=== PATIENT | male | born 1955 | race Caucasian/White ===

== ENCOUNTER 2017-08-19 15:39 | Inpatient (IN) | payer OTHER ==
[~2017-08-19] VITALS: Ht 182.9 cm; Wt 132.6 kg
[2017-08-19 15:40] VITALS: O2SAT 97
[2017-08-19 15:41] VITALS: BP 186/98; PULSE 85; RESP 17; TEMP 98.3; O2SAT 97
[2017-08-19] MEDS ORDERED: HEPARIN SODIUM - IV 10,000 UNITS/10 ML VIAL IV PUSH STA (15:46)
[2017-08-19] MEDS ORDERED: SODIUM CHLOR 0.9% 1000 ML INJ 1,000 ML IV ONE (15:46)
[2017-08-19] MEDS ORDERED: HEPARIN-NS/PF FLUSH BAG 1,000 ML IV FLUSH ONE (15:53)
[2017-08-19] MEDS ORDERED: SODIUM CHLORIDE 0.9% FLUSH 10 ML FLUSH IVF PRN (16:00)
--- NOTE | 2017-08-19 16:03 | RADRPT ---
EXAM DATE/TIME: 08/19/2017 15:54 [place] COMPARISON: No previous studies available for comparison. INDICATIONS : Chest pain, STEMI alert. MEDICAL HISTORY : None. SURGICAL HISTORY : None. ENCOUNTER: Initial ACUITY: 1 day PAIN SCORE: 10/10 LOCATION: Bilateral chest FINDINGS: A single view of the chest demonstrates the lungs to be symmetrically aerated without evidence of mas s, infiltrate or effusion. The cardiomediastinal contours are unremarkable. Osseous structures are intact. CONCLUSION: No acute disease. Zackery Oneill Jr., MD on August 19, 2017 at 15:59 Board Certified Radiologist. This report was verified electronically.
[2017-08-19 16:09] LABS: AUTOMATED NEUTROPHIL # 12.7 TH/MM3 (1.8-7.7); BASOPHIL # 0.2 TH/MM3 (0-0.2); BASOPHIL % 1.1 % (0.0-2.0); EOSINOPHIL % 0.3 % (0.0-4.0); HEMATOCRIT 41.7 % (39.0-51.0); HEMOGLOBIN 15.2 GM/DL (13.0-17.0); LYMPH % 14.4 % (9.0-44.0); LYMPHOCYTE # 2.3 TH/MM3 (1.0-4.8); MEAN CELL VOLUME 86.9 FL (80.0-100.0); MEAN CORPUSCULAR HEMOGLOBIN 31.6 PG (27.0-34.0); MEAN PLATELET VOLUME 9.8 FL (7.0-11.0); MONO % 4.1 % (0.0-8.0); MONOCYTE # 0.7 TH/MM3 (0-0.9); NEUT % 80.1 % (16.0-70.0); PLATELET COUNT 211 TH/MM3 (150-450); RED CELL DISTRIBUTION WIDTH 13.5 % (11.6-17.2); WHITE BLOOD COUNT 15.9 TH/MM3 (4.0-11.0)
[2017-08-19] MEDS ORDERED: MIDAZOLAM HCL 2 MG/2 ML VIAL ONE ×2 (16:10→16:32)
--- NOTE | 2017-08-19 16:14 | PD ---
HPI Chief Complaint: Chest Pain Time Seen by Provider: 15:46 Travel History International Travel<30 days: No Contact w/Intl Traveler<30days: No Traveled to known affect area: No History of Present Illness HPI This patient arrives critically ill with acute chest pain having a STEMI. He has anterior sternal pressure and heaviness for 2 hours duration. It is moderately severe. He does not have any history of cardiac disease. No alleviating factors. He had to sling or mitral and 4 baby aspirins. No exacerbating factors. He quit smoking 13 years ago. He is overweight. [facility] Social History Alcohol Use: Yes ([id number]) Tobacco Use: Yes Substance Use: No Allergies-Medications (Allergen,Severity, Reaction): Coded Allergies: No Known Allergies (Unverified , 08/19/17) Review of Systems General / Constitutional: No: Fever Eyes: No: Visual changes HENT: No: Headaches Cardiovascular: Positive: Chest Pain or Discomfort Respiratory: No: Shortness of Breath Gastrointestinal: No: Abdominal Pain Genitourinary: No: Dysuria Musculoskeletal: No: Pain Skin: No Rash Neurologic: No: Weakness Psychiatric: No: Depression Endocrine: No: Polydipsia Hematologic/Lymphatic: No: Easy Bruising Physical Exam Narrative GENERAL: Well-nourished, well-developed patient with chest pain . SKIN: Focused skin assessment reveals no rash and nodules. Skin is Warm and dry. HEAD: Atraumatic. Normocephalic. EYES: Pupils equal and round. No scleral icterus. No injection or drainage. ENT: No nasal bleeding or discharge. Mucous membranes pink and moist. NECK: Trachea midline. No JVD. CARDIOVASCULAR: Regular rate and rhythm. No murmur appreciated. RESPIRATORY: No accessory muscle use. Clear to auscultation. Breath sounds equal bilaterally. GASTROINTESTINAL: Abdomen soft, non-tender, nondistended. Hepatic and splenic margins not palpable. MUSCULOSKELETAL: No obvious deformities. No clubbing. No cyanosis. No edema. NEUROLOGICAL: Awake and alert. No obvious cranial nerve deficits. Motor grossly within normal limits. Normal speech. PSYCHIATRIC: Appropriate mood and affect; insight and judgment normal. Data Data Last Documented VS Vital Signs Date Time Temp Pulse Resp B/P (MAP) Pulse Ox O2 Delivery O2 Flow Rate FiO2 08/19/17 15:46 98 Room Air 08/19/17 15:41 98.3 85 17 186/98 (127) Orders Orders Troponin I (08/19/17 15:46) Ckmb (Isoenzyme) Profile (08/19/17 15:46) Complete Blood Count With Diff (08/19/17 15:46) I-Stat Profile (08/19/17 15:46) I-Stat Creatinine (08/19/17 15:46) Calcium (08/19/17 15:46) Magnesium (Mg) (08/19/17 15:46) Prothrombin Time / Inr (Pt) (08/19/17 15:46) Act Partial Throm Time (Ptt) (08/19/17 15:46) B-Type Natriuretic Peptide (08/19/17 15:46) Chest, Single Ap (08/19/17 15:46) Electrocardiogram (08/19/17 15:46) Oxygen Administration (08/19/17 15:46) Iv Access Insert/Monitor (08/19/17 15:46) Oximetry (08/19/17 15:46) Sodium Chlor 0.9% 1000 Ml Inj (Ns 1000 M (08/19/17 15:46) Sodium Chloride 0.9% Flush (Ns Flush) (08/19/17 16:00) Heparin Inj (Heparin Inj) (08/19/17 15:46) Cardiac Catheterization (08/19/17 ) Admit Order (Ed Use Only) (08/19/17 15:53) Heparin-Ns/Pf Flush Bag (Heparin-Ns/Pf F (08/19/17 15:53) Labs Laboratory Tests Test 08/19/17 15:50 MDM Medical Decision Making Medical Screen Exam Complete: Yes Emergency Medical Condition: Yes Medical Record Reviewed: Yes Differential Diagnosis STEMI, ACS, cardiac arrhythmia Narrative Course I have reviewed the patient's electronic medical record. This patient arrives as a acute inferior wall STEMI I reviewed his EKG which shows ST elevation in leads II, III, and F aVF with reciprocal depression in anterior leads Blood pressure 180s systolic IV placed and STEMI workup ordered I stats look normal I reviewed the case with acoustical carpenter Dr. Calvert I gave him 7000 units IV heparin bolus He is going to be sent emergently to the catheterization lab Critical Care Narrative Aggregate critical care time was 33 minutes. Time to perform other separately billable procedures was not included in the critical care time. My time did not include minutes spent treating any other patients simultaneously or on activities that did not directly contribute to the patient's treatment. The services I provided to this patient were to treat and/or prevent clinically significant deterioration that could result in: Myocardial injury, cardiopulmonary arrest, cardiac arrhythmia I provided critical care services requiring my management, as noted below: Chart data review, documentation time, medication orders and management, vital sign assessments/reviewing monitor data, ordering and reviewing lab tests, ordering and interpreting/reviewing x-rays and diagnostic studies, care of the patient and discussion of the patient with the admitting physicians. Diagnosis Primary Impression: ST elevation myocardial infarction (STEMI) of inferior wall, initial episode of care Admitting Information Admitting Physician Requests: Froylan Ragland MD Aug 19, 2017 16:14
[2017-08-19] MEDS ORDERED: MIDAZOLAM HCL 2 MG/2 ML VIAL IV ONE ×2 (16:19→16:33)
[2017-08-19] MEDS ORDERED: HEPARIN SODIUM - IV 10,000 UNITS/10 ML VIAL ONE (16:29)
[2017-08-19] MEDS ORDERED: HEPARIN SODIUM - IV 10,000 UNITS/10 ML VIAL IV ONE (16:30)
[2017-08-19 16:31] LABS: PROTHROMBIN TIME - PATIENT 9.9 SEC (9.8-11.6)
[2017-08-19 16:36] LABS: CALCIUM 8.8 MG/DL (8.5-10.1); TROPONIN I 0.19 NG/ML (0.02-0.05)
[2017-08-19 16:37] LABS: MAGNESIUM 2.3 MG/DL (1.5-2.5)
[2017-08-19 16:46] LABS: MEAN CORPUSCULAR HGB CONC 36.4 % (32.0-36.0)
[2017-08-19] MEDS ORDERED: TIROFIBAN INFUSION INJ 250 ML IV ONE (16:46)
[2017-08-19 16:47] LABS: TOXIC GRANULATION 2+ (NORMAL)
[2017-08-19 16:48] LABS: SPHEROCYTES OCC (NORMAL); TOXIC VACUOLATION PRESENT (NONE SEEN)
[2017-08-19] MEDS ORDERED: TIROFIBAN IV ONE (16:51)
[2017-08-19] MEDS ORDERED: TIROFIBAN INFUSION INJ 250 ML IV SCH (16:53)
[2017-08-19] MEDS ORDERED: TICAGRELOR 90 MG TAB PO ONE ×2 (16:59→17:02)
[2017-08-19] MEDS ORDERED: SODIUM CHLOR 0.9% 1000 ML INJ 1,000 ML IV SCH (17:12)
[2017-08-19] MEDS ORDERED: TEMAZEPAM 15 MG CAP PO PRN (17:15)
[2017-08-19] MEDS ORDERED: MISC INFORMATION XX ONE (17:15)
--- NOTE | 2017-08-19 17:26 | CATHPROC ---
[employer] HIS Report Study Information Study Number Admission Scheduled Start Study Start [id number] Aug 19 2017 3:39PM 08/19/2017 Aug 19 2017 3:54PM [place] Service Cardiac Catheterization Admit Source Facility Department Emergency department [facility] - Call Center Receptionist Physician and Clinical Staff Initial Cornell Eubanks Historic Interpreter Shad Valencia,VIVIEN Recorder Vijaya Nunez ,RT(R) Scrub Loree Perea,RT(R) Procedures Performed Procedure Location (Site) Vessel Name Angiogram LV LV Ventricle Coronary Angiograms LCA Left Coronary Coronary Angiograms RCA Right Coronary Drug Eluting Inflatio Circ Mid Seg 1 Circ Mid L Heart Cath PTCA Circ Mid Seg 1 Circ Mid Wire insertion Fem Art (right) Femoral Art Equipment Time Line Camera Operator Description Size Mfg Part Number Used/Scraped [id number] 16:24 [employer] WIRE, ASAHI PROWATER 180CM 180CM Used *[id number] WIRE, BALANCE MIDDLEWEIGHT [id number] 16:24 [employer] 190CM Used 190CM *[id number] TRANSDUCER, TRUWAVE [id number] 15:59 SANCHEZ JOHN * Used W/STOCKCOCK *[id number] *[id number] *[id number] PIGTAIL ANG. 145 INFINITI 534-652S CATHETER *[id number] *[id number] 15:59 [employer] PACK, CCL CUSTOM * Used *[id number] 15:59 [employer] PACER PEN, SKIN DUAL W/ RULER * Used *[id number] 16:45 [employer] BALLOON, 3.0 X 15MM EUPHORA 15MM Used *[id number] 16:23 [employer] CATHETER, EXPORT ASPIRATON Used *[id number] 16:51 [employer] STENT, 3.5 18MM ZAY 3.5 18MM Used *[id number] 16:47 [employer] MEDICAL 30 KERWIN INDEFLATOR Used *[id number] 15:59 [employer] MEDICAL SHEATH, FR6.5 PRELUDE 11CM FR 6.5 038ACT Used *[id number] 15:59 [employer] MEDICAL WIRE, 3MMJ .035 180CM 180CM Used *[id number] 15:59 NAMIC MANIFOLD, 4 PORT * Used *[id number] 15:59 [employer] OMNIPAQUE, 350 MG, 150ML 150ML [id number] Used [id number] 15:59 [employer] MEDICAL BLANKET,WARM AIR CCL * Used *[id number] Equipment Model, Serial, Lot Number and Expiration Data Description Model Number Serial Number Lot Number Expiration Date STENT, 3.5 18MM ZAY [id number] 04-16-2019 History: Current Medications Medication Dosage/Unit Route Frequency Last Date/Time Taken ASA HEPARIN History: Allergies Allergy Reaction No Known Allergies History: Risk Factors Family History of Hypertension Dyslipidemia Previous IA Previous Heart Failure Premature CAD No No No No No Prior Valve Prior PCI Prior CABG Surgery No No No Cerebrovascular Peripheral Artery Chronic Lung On Dialysis Diabetes Disease Disease Disease No No No No No History: Symptoms/Diagnosis Selection Items Chest pain History: Stress Tests Stress or Imaging Studies Performed No History: Other Current Smoker No Labs Hgb (g/dl) Hct (%) WBC (l/cumm) Platelets (thousands) 11.60-17.00 35.00-51.00 4.00-11.00 150.00-450.00 15.0 44 15.9 211 Glucose (mg/dl) BUN (mg/dl) Creatinine (mg/dl) BUN:Creatinine (1:x) 74.00-106.00 7.00-18.00 0.50-1.30 10.00-20.00 210 12 0.8 15 Na (meq/l) K (meq/l) 136.00-145.00 3.50-5.10 137 4.7 Troponin I (ng/ml) CPK-MB (ng/ML) 0.02-0.05 0.50-3.60 0.19 Not Drawn Medication Medication Total Dose (Bolus/Oral) Medication Total Dosage/Unit 1% XYLOCAINE 20 mL AGGRASTAT BOLUS 62 mL BRILINTA 180 mg FENTANYL 50 mcg HEPARIN 2500 units NTG (IC) 150 mcg VERSED 4 mg Medications (Bolus/Oral) Medication Time Given Dosage/Unit Administered By Reason 1% XYLOCAINE 08/19/2017 4:17:53 PM 20 mL Cornell Calvert 20 mL 1% XYLOCAINE given in lab by Cornell Calvert in Right Groin via Subcutaneous. Ordered by Mario Alberto Calvert enn. VERSED 08/19/2017 4:19:58 PM 2 mg Shad Valencia 2 mg VERSED given in lab by Shad Valencia RN in Left Antecubital via Peripheral IV. Ordered by Cornell Ford. HEPARIN 08/19/2017 4:30:00 PM 2500 units Shad Valencia 2500 units HEPARIN given in lab by Shad Valencia RN in Left Antecubital via Peripheral IV. Ordered by Cornell Calvert. VERSED 08/19/2017 4:33:20 PM 2 mg Shad Valencia 2 mg VERSED given in lab by Shad Valencia RN in Left Antecubital via Peripheral IV. Ordered by Cornell Ford. NTG (IC) 08/19/2017 4:49:21 PM 50 mcg Cornell Calvert 50 mcg NTG (IC) given in lab by Cornell Calvert via Intra-coronary. Ordered by Cornell Calvert. NTG (IC) 08/19/2017 4:50:01 PM 100 mcg Cornell Calvert 100 mcg NTG (IC) given in lab by Cornell Calvert via Intra-coronary. Ordered by Cornell Calvert. AGGRASTAT BOLUS 08/19/2017 4:51:40 PM 62 mL Shad Valencia 62 mL AGGRASTAT BOLUS given in lab by Shad Valencia RN via Peripheral IV. Ordered by Cornell Calvert. FENTANYL 08/19/2017 5:01:09 PM 50 mcg Shad Valencia 50 mcg FENTANYL given in lab by Shad Valencia RN via Peripheral IV. Ordered by Cornell Calvert. BRILINTA 08/19/2017 5:02:25 PM 180 mg Shad Valencia 180 mg BRILINTA given in lab by Shad Valencia RN via Oral. Ordered by Cornell Calvert. Medication (Drip) Medication Time Given Dosage/Unit Concentration/Unit Diluent (ml) Solution AGGRASTAT DRIP 08/19/2017 4:53:53 PM 0.148 mcg/kg/min 12.5 mg 250 NaCl .9 0.148 mcg/kg/min AGGRASTAT DRIP given in lab by Shad Valencia RN via Peripheral IV. Pump/Drip Flow = 22.5 ml/hr using NaCl .9 with a concentration of 12.5 mg in 250 ml. Ordered by Cornell Calvert. IV Solutions 08/19/2017 4:00:57 PM 50 mL (IV) NaCl .9 IV Solutions given in lab by Cornell Calvert in Left Antecubital via Peripheral IV. Pump/Drip Flow using NaCl .9. Ordered by Cornell Calvert. Initial Case Assessment Cardiovascular HR Rhythm NIBP Chest Pain 96 stemi 166/102 7 Edema Present Skin color Skin None Normal Warm Dry Circulatory - Right Pulses Dorsalis Pedis Femoral 2 2 Scale (0,1,2,3,4,d) Circulatory - Left Pulses Dorsalis Pedis Femoral 2 2 Scale (0,1,2,3,4,d) Neurological State Oriented to time-place- Alert Moves all extremities person Respiration - General Respiration Rate SpO2 (%) O2 (lpm) (B/min) 11 96 2 Final Case Assessment Cardiovascular HR NIBP 92 129/84 Edema Present Skin color Skin None Normal Warm Dry Neurological State Oriented to time-place- Alert Moves all extremities person Respiration - General Respiration Rate SpO2 (%) (B/min) 16 93 Chronological Log Time Study Chronological Log 16:00:33 Patient arrived via Bed. 16:00:34 Patient Name, D.O.B, / Armband Verified By R.N. 16:00:35 Consent signed by the physician and the patient and verified by the Call Center Receptionist staff. 16:00:36 Verbal Stimulation=2 Physical Stimulation=2 Airway=2 Respiration=2 TOTAL=8. (0=absent, 1=li mited, 2=present) 16:00:47 Patient has been NPO for Less than 6Hrs. 16:00:49 Skin Breakdown- none per patient 16:00:52 Patient Warmer Placed on the Table. 16:00:54 Disposable Defibrillator Pads Placed On Patient. 16:00:56 Emir Prominences Protected 16:00:57 A # 20 IV was noted in the Hand (right). Grade = 0 16:00:57 A # 20 IV was noted in the Antecubital (left). Grade = 0 IV Solutions given in lab by Cornell Calvert in Left Antecubital via Peripheral IV. Pump/Drip Flow using NaCl .9. Ordered 16:00:57 by Cornell Calvert. 16:00:59 History and physical on the chart or being dictated. Assessment: Initial Case, HR=96 BPM, Rhythm=stemi, FIGM=576/102 mmhg, Chest Pain=7, Edema=None, Color=Normal, Skin = Warm, Dry Right Pulses: Demetri Ped=2, Femoral=2 16:01:02 Left Pulses: Demetri Ped=2, Femoral=2 Neurological: State=Alert, Ox3, CARVALHO Respiration: Resp=11 B/min, SpO2=96 %, O2=2 lpm Vitals capture started with the following parameters, Patient=Adult, Interval=5 min, Initial Pr sdkbfr=107 mmHg, 16:04:56 Deflation Rate=5 mmHg, Cuff placed on Left Arm 16:05:55 HR=90 bpm, GPBR=674/102 mmhg, SpO2=96.0 %, Resp=12 B/min, Pain=7, Irina=6, Moon=2 16:06:06 Reference ECG taken 16:08:45 MD paged 16:09:26 Pressure channel 1 zero failed. 16:09:38 MD responded 16:09:47 Pressure channel 1 zero failed. 16:10:05 Pressure channel 1 zero failed. 16:10:12 Pressure channel 1 zeroed. 16:10:35 HR=88 bpm, FAZV=260/110 mmhg, SpO2=99.0 %, Resp=16 B/min, Pain=7, Irina=6, Moon=2 16:14:45 MD arrived. 16:15:28 HR=89 bpm, NIBP=75/61 mmhg, SpO2=99.0 %, Resp=14 B/min, Pain=7, Irina=6, Moon=2 16:16:15 NIBP STAT measurement started. 16:16:21 Vitals capture stopped. Vitals capture started with the following parameters, Patient=Adult, Interval=5 min, Initial Pr kjyfsf=818 mmHg, 16:16:39 Deflation Rate=5 mmHg, Cuff placed on Right Arm Time Out. Correct patient, correct procedure, correct physician, power injector not loaded with contrast with surgical 16:17:43 team present. Time Out Concurred by MD and individual staff in procedure. 16:17:52 Case Start 16:17:53 20 mL 1% XYLOCAINE given in lab by Cornell Calvert in Right Groin via Subcutaneous. Ordered by Cornell Calvert. 16:18:47 NU=517 bpm, YDBN=852/69 mmhg, SpO2=99.0 %, Resp=19 B/min, Pain=7, Irina=6, Moon=2 16:19:58 2 mg VERSED given in lab by Shad Valencia, RN in Left Antecubital via Peripheral IV. Order ed by Cornell Calvert. 16:20:08 Access site was Right Femoral Artery. 16:20:15 A SHEATH, FR6.5 PRELUDE 11CM FR 6.5 was advanced into the Fem Art (right) using the Percuta neous technique. A JL 4.0 INFINITI CATHETER FR 6 was advanced over a wire. OMNIPAQUE, 350 MG, 150ML 150ML was us ed for 16:20:38 injections. Recorded Pressure: Ao, HR=96, Condition=Condition 1 16:21:33 (Aorta) Ao 148/90/117 16:21:45 The LCA was injected and visualized at various angles. OMNIPAQUE, 350 MG, 150ML 150ML used . 16:22:20 HR=77 bpm, EZIJ=473/99 mmhg, SpO2=96.0 %, Resp=16 B/min, Pain=7, Irina=6, Moon=2 16:22:57 Catheter was removed A 3DRC INFINITI CATHETER FR 6 was advanced over a wire. OMNIPAQUE, 350 MG, 150ML 150ML was used for 16:22:59 injections. 16:24:32 The RCA was injected and visualized at various angles. OMNIPAQUE, 350 MG, 150ML 150ML used . 16:24:40 Catheter was removed 16:25:08 Activated Clotting Time Drawn A XBLAD 3.5 GUIDE CATHETER FR 6 was advanced over a wire. OMNIPAQUE, 350 MG, 150ML 150ML was us ed for 16:25:35 injections. 16:27:52 HR=90 bpm, JXWO=438/108 mmhg, SpO2=97.0 %, Resp=16 B/min, Pain=7, Irina=6, Moon=2 16:28:19 A WIRE, [facility] PROWATER 180CM 180CM was inserted via Fem Art (right). 16:29:00 Interventional wire has crossed the lesion 16:29:14 ACT (Normal Range 90-180) = 200 16:30:00 2500 units HEPARIN given in lab by Shad Valencia, RN in Left Antecubital via Peripheral IV . Ordered by Cornell Calvert. 16:31:46 A WIRE, BALANCE MIDDLEWEIGHT 190CM 190CM was inserted via Fem Art (right). 16:32:26 HR=91 bpm, QCOF=475/96 mmhg, SpO2=97.0 %, Resp=15 B/min, Pain=7, Irina=6, Moon=2 16:32:55 Aspiration catheter inserted 16:33:20 2 mg VERSED given in lab by Shad Valencia, RN in Left Antecubital via Peripheral IV. Order ed by Cornell Calvert. 16:35:22 BMW Wire removed 16:36:45 Aspiration in progress 16:37:04 Catheter was removed 16:37:23 HR=80 bpm, MZGJ=920/59 mmhg, SpO2=92 %, Resp=22 B/min, Pain=7, Irina=6, Moon=2 16:38:08 A WIRE, BALANCE MIDDLEWEIGHT 190CM 190CM was inserted via Fem Art (right). 16:39:12 Aspiration catheter inserted 16:40:31 Aspiration in progress 16:41:19 Catheter was removed 16:41:53 A WIRE, BALANCE MIDDLEWEIGHT 190CM 190CM was inserted via Fem Art (right). 16:43:46 HR=91 bpm, JGNI=871/82 mmhg, SpO2=96.0 %, Resp=15 B/min, Pain=7, Irina=6, Moon=2 A BALLOON, 3.0 X 15MM EUPHORA 15MM was inserted over WIRE, ASAHI PROWATER 180CM 180CM via the F em Art 16:45:29 (right). A BALLOON, 3.0 X 15MM EUPHORA 15MM over a WIRE, ASAHI PROWATER 180CM 180CM in the Circ Mid Seg 1 was 16:46:35 inflated using a 30 KERWIN INDEFLATOR at 8 kerwin for 35 sec. 16:47:23 HR=97 bpm, KSUB=060/53 mmhg, SpO2=72.0 %, Resp=18 B/min, Pain=7, Irina=6, Moon=2 A BALLOON, 3.0 X 15MM EUPHORA 15MM over a WIRE, ASAHI PROWATER 180CM 180CM in the Circ Mid Seg 1 was 16:47:39 inflated using a 30 KERWIN INDEFLATOR at 8 kerwin for 20 sec. 16:48:41 Balloon Removed. 16:49:21 50 mcg NTG (IC) given in lab by Cornell Calvert via Intra-coronary. Ordered by Cornell Calvert. 16:49:37 Activated Clotting Time Drawn 16:50:01 100 mcg NTG (IC) given in lab by Cornell Calvert via Intra-coronary. Ordered by Cornell Calvert. 16:51:25 BMW Wire removed 16:51:40 62 mL AGGRASTAT BOLUS given in lab by Shad Valencia, RN via Peripheral IV. Ordered by Cornell Ford. A STENT, 3.5 18MM ZAY 3.5 18MM was advanced through a XBLAD 3.5 GUIDE CATHETER FR 6 over a WIR E, ASAHI 16:52:20 PROWATER 180CM 180CM. 16:52:39 HR=86 bpm, TXDW=686/77 mmhg, SpO2=78.0 %, Resp=23 B/min, Pain=7, Irina=6, Moon=2 A STENT, 3.5 18MM ZAY 3.5 18MM was deployed using a 30 KERWIN INDEFLATOR at 13 atmospheres for 30 seconds in 16:53:19 the Circ Mid Seg 1. 0.148 mcg/kg/min AGGRASTAT DRIP given in lab by Shad Valencia, RN via Peripheral IV. Pump/Drip Flow = 22.5 ml/hr 16:53:53 using NaCl .9 with a concentration of 12.5 mg in 250 ml. Ordered by Cornell Calvert. 16:55:21 Delivery device removed 16:55:35 Wire removed 16:55:37 Catheter was removed A PIGTAIL ANG. 145 INFINITI CATHETER FR 6 was advanced over a wire. OMNIPAQUE, 350 MG, 150ML 15 0ML was 16:55:38 used for injections. Recorded Pressure: LV, HR=96, Condition=Condition 1 16:57:12 (Left Ventricle) LV 113/13/27 16:57:36 HR=77 bpm, UEIN=605/86 mmhg, SpO2=89.0 %, Resp=19 B/min, Pain=7, Irina=6, Moon=2 16:58:34 The LV was injected at 12 cc/sec for a total of 41. OMNIPAQUE, 350 MG, 150ML 150ML used. Recorded Pressure: LV, Ao, HR=99, Condition=Condition 1 16:59:12 (Left Ventricle) LV 88/10/20, (Aorta) Ao 120/65/88 16:59:41 Catheter was removed 16:59:57 Case End 17:00:16 ACT (Normal Range 90-180) = 329 Assessment: Final Case, HR=92 BPM, BEZZ=253/84 mmhg, Edema=None, Color=Normal, Skin = Warm, Dry 17:00:28 Neurological: State=Alert, Ox3, CARVALHO Respiration: Resp=16 B/min, SpO2=93 % 17:00:29 Catheter(s) removed without difficulty 17:01:04 In the Fem Art (right) the sheath was sutured in place by Cornell Calvert. 17:01:09 50 mcg FENTANYL given in lab by Shad Valencia, VIVIEN via Peripheral IV. Ordered by Toña Calvert. 17:02:02 No case complications noted. 17:02:09 Bedside Report will be given. 17:02:13 Contrast Scanned 17:02:16 HR=82 bpm, XGXP=506/84 mmhg, SpO2=90.0 %, Resp=21 B/min, Pain=7, Irina=6, Moon=2 17:02:19 A Left Heart Cath was performed. 17:02:25 180 mg BRILINTA given in lab by Shad Valencia, RN via Oral. Ordered by Cornell Calvert. 17:07:08 Vitals capture stopped. 17:15:11 Patient moved to [facility] End Study - Contrast Media Used In Study Contrast Total Opened (mL) Total Used (mL) Total Wasted (mL) Omnipaque 160 160 0 End Study - Maximum Contrast Load Max Contrast Load (mL) 793.8 End Study - Radiation Exposure Fluoro Time (minutes) 10.0 End Study - Patient Disposition Complications Transferred To Interventional Outcome No Telemetry Bed successful
[2017-08-19 17:29] VITALS: BP 125/64; PULSE 88; RESP 20; TEMP 98; O2SAT 92
[2017-08-19] MEDS ORDERED: ATROPINE SULFATE 1 MG/10 ML SYRINGE ONE ×2 (18:26→20:17)
--- NOTE | 2017-08-19 18:41 | MA ---
cc: GWENDOLYN LINKN DATE: 08/19/2017 PROCEDURE Emergency left heart catheterization, selective coronary angiography, left ventriculography, thrombectomy/angioplasty/stent of a totally occluded thrombosed left circumflex. PROCEDURE NOTE The patient was brought to the cardiac catheterization laboratory under emergency conditions in the midst of an acute inferior ST-elevation myocardial infarction. The right groin was prepped and draped as per policy and anesthetized with 1% lidocaine. Arterial access was obtained via the right femoral artery and a 6-Tanzanian sheath placed. Coronary arteriography was performed using 6-Tanzanian Maryann left 4.0 and right progressive catheters. Left ventriculography was done using a standard 6-Tanzanian pigtail. Percutaneous coronary intervention was done as described below. There were no apparent immediate complications. HEMODYNAMIC RESULTS Left ventricle: 120 with an end-diastolic pressure of 20. Aorta 120/65 with a mean of 88. There was no significant transvalvular aortic gradient on pullback of the pigtail catheter. CORONARY ARTERIOGRAPHY The left main is a short vessel which is free of disease. The left anterior descending gives rise to a fairly large diagonal. There are minimal luminal irregularities in the proximal LAD and proximal diagonal. The left circumflex is a large dominant vessel which is totally occluded in its midportion. There is sluggish minimal flow into an obtuse marginal and into the distal left circumflex. The right coronary artery is a small nondominant vessel with minimal disease in its midportion. LEFT VENTRICULOGRAPHY Contrast injection of the left ventricle reveals no definite segmental wall motion abnormalities. Ejection fraction is estimated at 60%. PERCUTANEOUS CORONARY INTERVENTION DESCRIPTION: Adequate heparin was given during the procedure to achieve an ACT greater than 300 seconds. Aggrastat was given as per protocol. Using a 6-Tanzanian XB 3.5 guiding catheter, the ostium of the left main was re-engaged. Using a 0.014 Prowater guidewire the total occlusion in the mid left circumflex was crossed without difficulty and the tip of the wire positioned distally. A second wire, a balanced middle weight guidewire was advanced into the obtuse marginal without difficulty. Simply advancing the wires reestablished JANIS grade 2 flow in the vessel. Two passes were made over the Prowater guidewire using an [place] thrombectomy catheter. We had to remove the balance middle weight guidewire temporarily as it was difficult to advance the [place] catheter. Angiography at this point shows improvement in flow to JANIS grade 3. There is now residual ulcerated 90% residual stenosis. Further predilation was done using a 3.0 mm Euphora balloon catheter. Stenting was then done using a 3.5 x 18 mm Resolute Adan stent which was deployed at 13 atmospheres for 30 seconds. Final angiography shows overall good results with reduction of the initial total occlusion to roughly 0% residual with no definite evidence for dissection or distal embolization. The patient tolerated the procedure well. There were no apparent immediate complications. CONCLUSION 1. Severe single-vessel coronary artery disease. 2. Left dominant system. 3. Acute ST-elevation myocardial infarction due to a totally occluded mid left circumflex now status post thrombectomy, angioplasty, stent of this region. 4. Normal left ventricular function with estimated ejection fraction of 60%. MD PATTY Haskins/GOOD /5:04 PM /6:03 PM KAMARI
--- NOTE | 2017-08-19 18:41 | MB ---
cc: EDDA LINK DATE OF CONSULTATION 08/19/17 REASON FOR CON[address]ULTATION Acute ST-elevation myocardial infarction. HISTORY OF PRESENT ILLNESS The patient is a 62-year-old white male with a history of hyperlipidemia who was in his usual state of health up until two hours prior to admission when he began to experience fairly severe substernal chest pressure without associated shortness of breath, nausea or diaphoresis. He came to the emergency room where EKG showed evidence for acute inferior ST-elevation myocardial infarction, so he was called as a STEMI alert. At this time, he continues to have severe substernal chest discomfort. He denies pleurisy, dizziness, syncope, near-syncope, palpitations, pedal edema, paroxysmal nocturnal dyspnea. PAST MEDICAL HISTORY As above. MEDICATIONS Cardiac medications at home: none. ALLERGIES NO KNOWN DRUG ALLERGIES. FAMILY HISTORY There is no significant family history of early myocardial infarction. SOCIAL HISTORY The patient is a former smoker. There is no history of alcohol abuse. REVIEW OF SYSTEMS As in the history of present illness, otherwise, negative or noncontributory. He also denies headache, abdominal pain, dyspepsia, bright red blood per rectum or recent flu symptoms. PHYSICAL EXAMINATION VITAL SIGNS: Blood pressure 186/98 with a pulse of 85, respirations 17. GENERAL: He is a well-developed, well-nourished white male in no acute distress HEENT: Jugular venous pressure is normal. Carotid pulses are 2+ bilaterally and without bruits. LUNGS: Examination of the chest reveals clear lung esparza anteriorly. HEART: On cardiac examination, he has a regular rhythm and rate without definite S3, S4 or murmur. ABDOMEN: He has a soft, obese, nontender abdomen. Bowel sounds are present. There is no definite hepatosplenomegaly. EXTREMITIES: No clubbing, cyanosis or edema. Peripheral pulses are normal throughout. IMAGING STUDIES Chest x-ray shows no acute disease. CARDIOLOGY STUDIES EKG shows sinus rhythm, right bundle-branch block, inferior ST elevation with reciprocal changes consistent with acute injury pattern. LABORATORY DATA WBC 15.9, hemoglobin 15.2, platelets 211, potassium 4.7, BUN 12, creatinine 0.8, CK 223, troponin 0.19, INR 1.0. IMPRESSION Acute inferior ST-elevation myocardial infarction in this 62-year-old white male with a history of hyperlipidemia and tobacco abuse. At this time, he continues to have marked ST elevation on the monitor as well as severe chest pain. Therefore, he has been recommended emergency cardiac catheterization with probable percutaneous coronary intervention, the risks of which have been explained to him including but not limited to , myocardial infarction, stroke, arrhythmia, bleeding, infection, renal failure. He agrees to proceed. RECOMMENDATIONS 1. Emergency cardiac catheterization. 2. Eventually start beta abner and ROSLYN inhibitor therapy. 3. Check a fasting lipid profile and initiate statin therapy MD PATTY Haskins/ /5:14 PM /6:11 PM MTDMeme
[2017-08-19] MEDS ORDERED: LORazepam 2 MG/ML VIAL IV ONE (20:30)
[2017-08-19] MEDS ORDERED: ATROPINE SULFATE 1 MG/10 ML SYRINGE IV ONE (20:30)
[2017-08-19] MEDS ORDERED: CARVEDILOL 3.125 MG TAB PO SCH (21:00)
[2017-08-19] MEDS ORDERED: ENALAPRIL MALEATE 5 MG TAB PO SCH (21:00)
[2017-08-19 21:30] VITALS: BP 161/88; PULSE 83; PULSE 89; RESP 16; TEMP 98.7; O2SAT 95
[2017-08-19] MEDS ORDERED: cloNIDine HCL 0.1 MG TAB PO PRN (22:30)
--- NOTE | 2017-08-19 22:49 | PD.CONS ---
HPI Service Critical Care Medicine Consult Requested By Primary Care Physician Unknown History of Present Illness 62-year-old gentleman admitted with acute chest pain having a STEMI. He has had anterior sternal pressure and heaviness for 2 hours duration. He was taken emergently to cardiac catheterization lab where the total occlusion in the mid left circumflex was treated with angioplasty and kathi stent placement. Patient was admitted to CVICU postprocedure where he developed periods of bradycardia 30s with altered mental status and agonal respiration. The critical care medicine was consulted by cardiology for assistance of management of bradycardia. Review of Systems Constitutional: COMPLAINS OF: Diaphoretic episodes, DENIES: Fatigue, Fever, Weight gain, Weight loss, Chills, Dizziness, Change in appetite, Night Sweats Endocrine: DENIES: Heat/cold intolerance, Polydipsia, Polyuria, Polyphagia Eyes: DENIES: Blurred vision, Diplopia, Eye inflammation, Eye pain, Vision loss , Photosensitivity, Double Vision Ears, nose, mouth, throat: DENIES: Tinnitus, Hearing loss, Vertigo, Nasal discharge, Oral lesions, Throat pain, Hoarseness, Ear Pain, Running Nose, Epistaxis, Sinus Pain, Toothache, Odynophagia Respiratory: COMPLAINS OF: Apneas, Shortness of breath, DENIES: Cough, Snoring , Wheezing, Hemoptysis, Sputum production Cardiovascular: COMPLAINS OF: Chest pain, Dyspnea on Exertion, DENIES: Palpitations, Syncope, PND, Lower Extremity Edema, Orthopnea, Claudication Gastrointestinal: COMPLAINS OF: Nausea, DENIES: Abdominal pain, Black stools, Bloody stools, Constipation, Diarrhea, Vomiting, Difficulty Swallowing, Anorexia Genitourinary: DENIES: Sexual dysfunction, Urinary frequency, Urinary incontinence, Urgency, Hematuria, Dysuria, Nocturia, Penile Discharge, Testicular Pain, Testicular Swelling Musculoskeletal: DENIES: Joint pain, Muscle aches, Stiffness, Joint Swelling, Back pain, Neck pain Integumentary: DENIES: Abnormal pigmentation, Nail changes, Pruritus, Rash Hematologic/lymphatic: DENIES: Bruising, Lymphadenopathy Immunologic/allergic: DENIES: Eczema, Urticaria Neurologic: DENIES: Abnormal gait, Headache, Localized weakness, Paresthesias, Seizures, Speech Problems, Tremor, Poor Balance Psychiatric: DENIES: Anxiety, Confusion, Mood changes, Depression, Hallucinations, Agitation, Suicidal Ideation, Homicidal Ideation, Delusions Past Family Social History Allergies: Coded Allergies: No Known Allergies (Unverified , 08/19/17) Past Medical History Obesity Dyslipidemia Past Surgical History No significant surgical history Reported Medications No prescription medication Active Ordered Medications Current Medications Medications (Trade) Dose Ordered Sig/Luis Angel Route PRN Reason Start Time Stop Time Status Last Admin Dose Admin Sodium Chloride (NS Flush) 2 ml UNSCH PRN IVF FLUSH AFTER USING IV ACCESS 08/19/17 16:00 Sodium Chloride 1,000 ml @ 100 mls/hr Q10H IV 08/19/17 17:12 08/20/17 05:11 Temazepam (Restoril) 15 mg HS PRN PO SLEEP 08/19/17 17:15 Aspirin (Aspirin Chew) 81 mg DAILY PO 08/20/17 09:00 Ticagrelor (Brilinta) 90 mg BID PO 08/20/17 09:00 Tirofiban/Sodium Chloride 250 ml @ 22.86 mls/ hr [id number] IV 08/19/17 17:12 08/20/17 11:11 Enalapril Maleate (Vasotec) 5 mg BID PO 08/19/17 21:00 Atorvastatin Calcium (Lipitor) 40 mg HS PO 08/19/17 21:00 Lorazepam (Ativan Inj) 0.5 mg Q4H PRN IV ANXIETY 08/20/17 00:30 Amlodipine Besylate (Norvasc) 10 mg DAILY PO 08/20/17 09:00 Clonidine (Catapres) 0.1 mg Q1H PRN PO SBP > 160 08/19/17 22:30 08/20/17 09:00 Family History No significant family history of early coronary artery disease Social History Quit smoking 13 years ago, denies alcohol or illicit drug abuse Physical Exam Vital Signs Vital Signs Date Time Temp Pulse Resp B/P (MAP) Pulse Ox O2 Delivery O2 Flow Rate FiO2 08/19/17 17:29 98.0 88 20 125/64 (84) 92 08/19/17 15:46 98 Room Air 08/19/17 15:41 98.3 85 17 186/98 (127) 97 08/19/17 15:40 97 2.00 Physical Exam GENERAL: Obese gentleman in moderate respiratory distress. SKIN: Warm and dry. HEAD: Normocephalic. EYES: No scleral icterus. No injection or drainage. NECK: Supple, trachea midline. No JVD or lymphadenopathy. CARDIOVASCULAR: Regular rate and rhythm without murmurs, gallops, or rubs. RESPIRATORY: Breath sounds equal bilaterally. No accessory muscle use. GASTROINTESTINAL: Abdomen soft, non-tender, nondistended. MUSCULOSKELETAL: No cyanosis, or edema. BACK: Nontender without obvious deformity. NEURO EXAM: GCS: 15 Mental Status: The patient is alert and oriented to person, place, and time with normal speech. Laboratory Laboratory Tests Test 08/19/17 15:50 White Blood Count 15.9 Red Blood Count 4.80 Hemoglobin 15.2 Bedside Hemoglobin 15.0 Hematocrit 41.7 Bedside Hematocrit 44.0 Mean Corpuscular Volume 86.9 Mean Corpuscular Hemoglobin 31.6 Mean Corpuscular Hemoglobin Concent 36.4 Red Cell Distribution Width 13.5 Platelet Count 211 Mean Platelet Volume 9.8 Neutrophils (%) (Auto) 80.1 Lymphocytes (%) (Auto) 14.4 Monocytes (%) (Auto) 4.1 Eosinophils (%) (Auto) 0.3 Basophils (%) (Auto) 1.1 Neutrophils # (Auto) 12.7 Lymphocytes # (Auto) 2.3 Monocytes # (Auto) 0.7 Eosinophils # (Auto) 0.0 Basophils # (Auto) 0.2 CBC Comment AUTO DIFF Differential Comment AUTO DIFF CONFIRMED Toxic Granulation 2+ Toxic Vacuolation PRESENT Platelet Estimate NORMAL Platelet Morphology Comment NORMAL Basophilic Stippling FAINT Spherocytes OCC Prothrombin Time 9.9 Prothromb Time International Ratio 1.0 Activated Partial Thromboplast Time 21.2 Bedside Sodium 137 Bedside Potassium 4.7 Bedside Chloride 102 Bedside Blood Urea Nitrogen 12 Bedside Creatinine 0.8 Bedside Glucose 210 Calcium Level 8.8 Magnesium Level 2.3 Total Creatine Kinase 223 Creatine Kinase MB 2.7 Troponin I 0.19 B-Type Natriuretic Peptide 36 Result Diagram: 08/19/17 1550 Imaging Last 24 hours Impressions Chest X-Ray 08/19/17 1546 Signed Impressions: Service Date/Time: Saturday, August 19, 2017 15:54 - CONCLUSION: No acute disease. Zackery Oneill Jr., MD Assessment and Plan Assessment and Plan STEMI - Status post cardiac catheterization and [place] stent in the circumflex - Aspirin - Brilanta - Atorvastatin - Tirofiban - Hold beta abner due to symptomatic bradycardia - Management per cardiology Bradycardia - Status post acute myocardial infarction - Atropine when necessary - External pacer for heart rate less than 35 Hypertension - Lisinopril - Norvasc - Clonidine Dyslipidemia - Atorvastatin DVT GI prophylaxis - Teds SCDs - Pharmacological DVT prophylaxis per cardiology - Heart healthy diet once when hemodynamically stable Critical Care: The total critical care time was 35 minutes. Time to perform other separately billable procedures was not included in the critical care time. Tom Betancourt MD Aug 19, 2017 22:49
[2017-08-19 22:50] VITALS: O2SAT 97
[2017-08-19 23:00] VITALS: BP 148/85; PULSE 90; PULSE 99; RESP 16; TEMP 98.9; O2SAT 95
[2017-08-20] VITALS (15 sets, daily range): BP systolic 116–151; BP diastolic 63–82; PULSE 69–102; RESP 16–20; TEMP 98–99; O2SAT 94–99
[2017-08-20] MEDS ORDERED: LORazepam 2 MG/ML VIAL IV PRN (00:30)
[2017-08-20] MEDS: TIROFIBAN INFUSION INJ 250 ML IV SCH ×2 (00:37→00:49)
[2017-08-20 07:04] LABS: AUTOMATED NEUTROPHIL # 9.2 TH/MM3 (1.8-7.7); BASOPHIL # 0.1 TH/MM3 (0-0.2); BASOPHIL % 0.5 % (0.0-2.0); BICARBONATE 27.3 MEQ/L (21.0-32.0); CALCIUM 8.6 MG/DL (8.5-10.1); CREATININE 0.81 MG/DL (0.60-1.30); EOSINOPHIL % 0.3 % (0.0-4.0); HEMATOCRIT 41.4 % (39.0-51.0); HEMOGLOBIN 14.4 GM/DL (13.0-17.0); LYMPH % 12.6 % (9.0-44.0); LYMPHOCYTE # 1.4 TH/MM3 (1.0-4.8); MEAN CELL VOLUME 88.4 FL (80.0-100.0); MEAN CORPUSCULAR HEMOGLOBIN 30.7 PG (27.0-34.0); MEAN CORPUSCULAR HGB CONC 34.8 % (32.0-36.0); MEAN PLATELET VOLUME 8.9 FL (7.0-11.0); MONO % 5.9 % (0.0-8.0); MONOCYTE # 0.7 TH/MM3 (0-0.9); NEUT % 80.7 % (16.0-70.0); PLATELET COUNT 259 TH/MM3 (150-450); RED BLOOD COUNT 4.68 MIL/MM3 (4.50-5.90); RED CELL DISTRIBUTION WIDTH 13.4 % (11.6-17.2); WHITE BLOOD COUNT 11.4 TH/MM3 (4.0-11.0)
[2017-08-20 07:19] LABS: CHOLESTEROL/ HDL RATIO 4.21 RATIO; HDL CHOLESTEROL 42.5 MG/DL (40.0-60.0)
--- NOTE | 2017-08-20 07:47 | PD.CARD.PN ---
Subjective Subjective Remarks Feels "just great". Denies any recurrent dyspnea, CP. Denies dizziness, palpitations, groin pain, nausea. Objective Medications Item Value Date Time Aspirin 81 mg 08/20/17 0900 (Aspirin Chew) DAILY/PO Ticagrelor 90 mg 08/20/17 0900 (Brilinta) BID/PO Amlodipine 10 mg 08/20/17 0900 Besylate DAILY/PO (Norvasc) Enalapril Maleate 5 mg 08/19/17 2100 (Vasotec) BID/PO Atorvastatin 40 mg 08/19/17 2100 Calcium HS/PO (Lipitor) Tirofiban/Sodium 250 ml @ 22.86 mls/hr 08/19/17 1712 Chloride .[id number] 08/20/17 0049 Current Medications Medications (Trade) Dose Ordered Sig/Luis Angel Route Start Time Stop Time Status Last Admin (NS Flush) 2 ml UNSCH PRN IVF 08/19/17 16:00 (Restoril) 15 mg HS PRN PO 08/19/17 17:15 (Aspirin Chew) 81 mg DAILY PO 08/20/17 09:00 (Brilinta) 90 mg BID PO 08/20/17 09:00 Tirofiban/Sodium Chloride 250 ml @ 22.86 mls/ hr [id number] IV 08/19/17 17:12 08/20/17 11:11 08/20/17 00:49 (Vasotec) 5 mg BID PO 08/19/17 21:00 (Lipitor) 40 mg HS PO 08/19/17 21:00 (Ativan Inj) 0.5 mg Q4H PRN IV 08/20/17 00:30 (Norvasc) 10 mg DAILY PO 08/20/17 09:00 (Catapres) 0.1 mg Q1H PRN PO 08/19/17 22:30 08/20/17 09:00 Vital Signs / I&O Vital Signs Date Time Temp Pulse Resp B/P (MAP) Pulse Ox O2 Delivery O2 Flow Rate FiO2 08/20/17 07:00 83 08/20/17 03:00 99 08/20/17 03:00 78 08/20/17 03:00 99.0 77 16 151/82 (105) 98 08/20/17 03:00 98 Simple Mask 6.00 08/19/17 23:00 99 08/19/17 23:00 90 08/19/17 23:00 98.9 99 16 148/85 (106) 95 08/19/17 23:00 96 Simple Mask 6.00 08/19/17 22:50 97 Simple Mask 6.00 08/19/17 21:30 98.7 89 16 161/88 (112) 95 08/19/17 21:30 83 08/19/17 17:29 98.0 88 20 125/64 (84) 92 08/19/17 15:46 98 Room Air 08/19/17 15:41 98.3 85 17 186/98 (127) 97 08/19/17 15:40 97 2.00 I/O 08/19/17 08/19/17 08/19/17 08/20/17 08/20/17 08/20/17 07:00 15:00 23:00 07:00 15:00 23:00 Intake Total 750 ml Output Total 700 ml Balance 50 ml Intake Oral 0 ml IV Total 750 ml Output Urine Total 700 ml # Voids 3 # Bowel Movements 0 Physical Exam GENERAL: Well developed, well nourished. No acute distress. HEENT: Jugular venous pressure is normal. CHEST: Lungs clear to anteriorly. CARDIAC: Regular rate and rhythm without S3, S4, or murmur. ABDOMEN: Soft, nontender, no hepatosplenomegaly. Bowel sounds present. EXTREMITIES: No clubbing, cyanosis, or edema. Right groin nontender, no hematoma. Laboratory Laboratory Tests Test 08/19/17 15:50 08/20/17 05:09 White Blood Count 15.9 TH/MM3 11.4 TH/MM3 Red Blood Count 4.80 MIL/MM3 4.68 MIL/MM3 Hemoglobin 15.2 GM/DL 14.4 GM/DL Bedside Hemoglobin 15.0 G/DL Hematocrit 41.7 % 41.4 % Bedside Hematocrit 44.0 % Mean Corpuscular Volume 86.9 FL 88.4 FL Mean Corpuscular Hemoglobin 31.6 PG 30.7 PG Mean Corpuscular Hemoglobin Concent 36.4 % 34.8 % Red Cell Distribution Width 13.5 % 13.4 % Platelet Count 211 TH/MM3 259 TH/MM3 Mean Platelet Volume 9.8 FL 8.9 FL Neutrophils (%) (Auto) 80.1 % 80.7 % Lymphocytes (%) (Auto) 14.4 % 12.6 % Monocytes (%) (Auto) 4.1 % 5.9 % Eosinophils (%) (Auto) 0.3 % 0.3 % Basophils (%) (Auto) 1.1 % 0.5 % Neutrophils # (Auto) 12.7 TH/MM3 9.2 TH/MM3 Lymphocytes # (Auto) 2.3 TH/MM3 1.4 TH/MM3 Monocytes # (Auto) 0.7 TH/MM3 0.7 TH/MM3 Eosinophils # (Auto) 0.0 TH/MM3 0.0 TH/MM3 Basophils # (Auto) 0.2 TH/MM3 0.1 TH/MM3 CBC Comment AUTO DIFF AUTO DIFF Differential Comment AUTO DIFF CONFIRMED Toxic Granulation 2+ Toxic Vacuolation PRESENT Platelet Estimate NORMAL Platelet Morphology Comment NORMAL Basophilic Stippling FAINT Spherocytes OCC Prothrombin Time 9.9 SEC Prothromb Time International Ratio 1.0 RATIO Activated Partial Thromboplast Time 21.2 SEC Bedside Sodium 137 MMOL/L Bedside Potassium 4.7 MMOL/L Bedside Chloride 102 MMOL/L Bedside Blood Urea Nitrogen 12 MG/DL Bedside Creatinine 0.8 MG/DL Bedside Glucose 210 MG/DL Calcium Level 8.8 MG/DL 8.6 MG/DL Magnesium Level 2.3 MG/DL Total Creatine Kinase 223 U/L 1255 U/L Creatine Kinase MB 2.7 NG/ML Troponin I 0.19 NG/ML B-Type Natriuretic Peptide 36 PG/ML Blood Urea Nitrogen 8 MG/DL Creatinine 0.81 MG/DL Random Glucose 152 MG/DL Sodium Level 137 MEQ/L Potassium Level 4.6 MEQ/L Chloride Level 103 MEQ/L Carbon Dioxide Level 27.3 MEQ/L Anion Gap 7 MEQ/L Estimat Glomerular Filtration Rate 96 ML/MIN Triglycerides Level 126 MG/DL Cholesterol Level 179 MG/DL LDL Cholesterol 111 MG/DL HDL Cholesterol 42.5 MG/DL Cholesterol/HDL Ratio 4.21 RATIO Imaging Last 24 hours Impressions Chest X-Ray 08/19/17 3066 Signed Impressions: Service Date/Time: Saturday, August 19, 2017 15:54 - CONCLUSION: No acute disease. Zackery Oneill Jr., MD Assessment and Plan Problem List: (1) STEMI (ST elevation myocardial infarction) ICD Codes: I21.3 - ST elevation (STEMI) myocardial infarction of unspecified site Status: Acute Plan: Transient problems with bradycardia, asystole last night, stable since transfer to ICU. No evidence for subacute thrombosis of stent placed yesterday. No recurrent angina. Repeat EKG with resolution of initial marked ST elevation. REC keep off beta abner therapy for now continue ROSLYN-I, Brilinta, aspirin transfer out of ICU later today if remains stable (2) Hyperlipidemia ICD Codes: E78.5 - Hyperlipidemia, unspecified Status: Chronic Plan: Suboptimal lipid profile. Continue statin therapy. (3) Hypertension ICD Codes: I10 - Essential (primary) hypertension Status: Chronic Plan: Better though still suboptimal BP control. Increase enalapril dosing. Code Status full code Discussed Condition With patient Problem Qualifiers (1) STEMI (ST elevation myocardial infarction): Qualified Codes: I21.21 - ST elevation (STEMI) myocardial infarction involving left circumflex coronary artery (2) Hyperlipidemia: Qualified Codes: E78.2 - Mixed hyperlipidemia (3) Hypertension: Qualified Codes: I10 - Essential (primary) hypertension Cornell Calvert MD Aug 20, 2017 07:46
[2017-08-20] MEDS ORDERED: IOHEXOL 350 MG/ML 100 ML BTL (for Cath Lab) OTHER ONE (08:33)
[2017-08-20] MEDS: TICAGRELOR 90 MG TAB PO SCH ×2 (09:38→20:21)
[2017-08-20] MEDS: ASPIRIN 81 MG CHEW TAB PO SCH (09:38)
[2017-08-20] MEDS: ENALAPRIL MALEATE 5 MG TAB PO SCH ×2 (11:38→20:20)
[2017-08-20] MEDS: ATORVASTATIN 40 MG TAB PO SCH (20:21)
--- NOTE | 2017-08-20 20:43 | HHI.CCPN ---
Subjective Remarks/Hospital Course Hospital Course: 62-year-old gentleman admitted with acute chest pain having a STEMI. He has had anterior sternal pressure and heaviness for 2 hours duration. He was taken emergently to cardiac catheterization lab where the total occlusion in the mid left circumflex was treated with angioplasty and kathi stent placement. Patient was admitted to CVICU postprocedure where he developed periods of bradycardia 30s with altered mental status and agonal respiration. The critical care medicine was consulted by cardiology for assistance of management of bradycardia. Subjective: 08/20: no chest pain. resting comfortably on my eval. ROS negative. transferred to floor at cardiology request. Objective Vital Signs Date Time Temp Pulse Resp B/P (MAP) Pulse Ox O2 Delivery O2 Flow Rate FiO2 08/20/17 20:00 88 08/20/17 20:00 98.5 20 121/65 (83) 95 08/20/17 20:00 Simple Mask 6.00 Intake and Output 08/20/17 08/20/17 08/21/17 08:00 16:00 00:00 Intake Total 750 ml 366 ml 620 ml Output Total 700 ml 750 ml Balance 50 ml 366 ml -130 ml Result Diagram: 08/20/17 0509 08/20/17 0509 Imaging Last 24 hours Impressions Chest X-Ray 08/19/17 1546 Signed Impressions: Service Date/Time: Saturday, August 19, 2017 15:54 - CONCLUSION: No acute disease. Zackery Oneill Jr., MD Objective Remarks GENERAL: Obese gentleman in no acute distress. SKIN: Warm and dry. HEAD: Normocephalic. EYES: No scleral icterus. No injection or drainage. NECK: trachea midline. No JVD. CARDIOVASCULAR: Regular rate and rhythm. RESPIRATORY: equal chest rise. No accessory muscle use. GASTROINTESTINAL: Abdomen soft, non-tender, nondistended. MUSCULOSKELETAL: No cyanosis, or edema. NEURO EXAM: RASS -1. neuro intact. A/P Assessment and Plan STEMI - Status post cardiac catheterization and [place] stent in the circumflex - Aspirin - Brilanta - Atorvastatin - Tirofiban - Hold beta abner due to symptomatic bradycardia - Management per cardiology Bradycardia - Status post acute myocardial infarction - Atropine when necessary - External pacer for heart rate less than 35 Hypertension - Lisinopril - Norvasc - Clonidine Dyslipidemia - Atorvastatin DVT GI prophylaxis - Teds SCDs - Pharmacological DVT prophylaxis per cardiology - Heart healthy diet once when hemodynamically stable Dispo: transfer out of ICU. consult hospitalist service. Ketan Rondon MD Aug 20, 2017 20:43
--- NOTE | 2017-08-20 21:35 | EKG ---
Date Performed: 08/19/2017 Time Performed: 21:06:22 PTAGE: 62 years EKG: Sinus rhythm with PVC(s).. JUNCTIONAL RHYTHM Right axis deviation Right bundle branch block Abnormal ECG NO PREVIOUS TRACING DOCTOR: Teo Talamantes Interpretating Date/Time 08/20/2017 21:34:07
--- NOTE | 2017-08-20 21:45 | EKG ---
Date Performed: 08/19/2017 Time Performed: 19:34:30 PTAGE: 62 years EKG: Sinus rhythm Lead(s) unsuitable for analysis: V2 Right axis deviation Right bundle branch block Abnormal ECG PREVIOUS TRACING : 08/19/2017 15.41 Compared to prior tracing, INFERIOR ST ELEVATION IS NO MALENA NICOL PRESENT DOCTOR: Teo Talamantes Interpretating Date/Time 08/20/2017 21:43:47
--- NOTE | 2017-08-20 21:57 | EKG ---
Date Performed: 08/19/2017 Time Performed: 15:41:05 PTAGE: 62 years EKG: Sinus rhythm RIGHT BUNDLE BRANCH BLOCK LEFT POSTERIOR FASCICULAR BLOCK MARKED ST ELEVATION, CONSIDER INFERIOR INJ URY ACUTE IL INTERPRETATION BASED ON A DEFAULT AGE OF 40 YEARS NO PREVIOUS TRACING DOCTOR: Teo Talamantes Interpretating Date/Time 08/20/2017 21:55:54
[2017-08-21] VITALS (20 sets, daily range): BP systolic 97–128; BP diastolic 44–70; PULSE 66–96; RESP 13–26; TEMP 98.1–98.9; O2SAT 92–100
[2017-08-21] MEDS ORDERED: ATROPINE SULFATE 1 MG/10 ML SYRINGE ONE (01:28)
[2017-08-21] MEDS ORDERED: ATROPINE SULFATE 1 MG/ML VIAL IV PUSH PRN (02:30)
[2017-08-21 02:39] LABS: AUTOMATED NEUTROPHIL # 7.9 TH/MM3 (1.8-7.7); BASOPHIL % 0.4 % (0.0-2.0); EOSINOPHIL % 0.4 % (0.0-4.0); HEMATOCRIT 39.3 % (39.0-51.0); HEMOGLOBIN 13.9 GM/DL (13.0-17.0); LYMPH % 12.2 % (9.0-44.0); LYMPHOCYTE # 1.2 TH/MM3 (1.0-4.8); MEAN CELL VOLUME 87.5 FL (80.0-100.0); MEAN CORPUSCULAR HEMOGLOBIN 30.9 PG (27.0-34.0); MEAN CORPUSCULAR HGB CONC 35.3 % (32.0-36.0); MEAN PLATELET VOLUME 8.7 FL (7.0-11.0); MONO % 6.4 % (0.0-8.0); MONOCYTE # 0.6 TH/MM3 (0-0.9); NEUT % 80.6 % (16.0-70.0); PLATELET COUNT 201 TH/MM3 (150-450); RED BLOOD COUNT 4.49 MIL/MM3 (4.50-5.90); RED CELL DISTRIBUTION WIDTH 13.4 % (11.6-17.2); WHITE BLOOD COUNT 9.8 TH/MM3 (4.0-11.0)
[2017-08-21 02:57] LABS: ALBUMIN 3.2 GM/DL (3.4-5.0); ALT (GPT) 119 U/L (12-78); AST (GOT) 147 U/L (15-37); BICARBONATE 26.4 MEQ/L (21.0-32.0); BLOOD UREA NITROGEN 14 MG/DL (7-18); CALCIUM 7.9 MG/DL (8.5-10.1); CHLORIDE 103 MEQ/L (98-107); CREATININE 0.88 MG/DL (0.60-1.30); GLOMERULAR FILTRATION RATE 87 ML/MIN (>89); GLUCOSE,RANDOM 165 MG/DL (74-106); MAGNESIUM 2.1 MG/DL (1.5-2.5); PHOSPHORUS 2.7 MG/DL (2.5-4.9); SODIUM (NA) 135 MEQ/L (136-145)
[2017-08-21 03:06] LABS: ALKALINE PHOSPHATASE 61 U/L (45-117); TOTAL BILIRUBIN ADULT 0.6 MG/DL (0.2-1.0); TOTAL PROTEIN 6.4 GM/DL (6.4-8.2)
[2017-08-21] MEDS: ENALAPRIL MALEATE 5 MG TAB PO SCH ×2 (09:27→22:09)
[2017-08-21] MEDS ORDERED: POVIDONE IODINE 5% (ANTISEPSIS KIT) 4 APPLICATIONS TOPICAL SCH (10:30)
[2017-08-21] MEDS ORDERED: CHLORHEXIDINE GLUCONATE 2 % 1 PACK (2 CLOTHS) TOPICAL SCH (10:30)
[2017-08-21] MEDS ORDERED: MUPIROCIN 2% OINT 1 APPLIC/GM SYR EACH NARE SCH (10:30)
--- NOTE | 2017-08-21 10:43 | HHI.PR ---
Subjective Remarks Follow-up ST elevation [place]/bradycardia 08/21/17-patient seen and examined, reports occasional shortness of breath however denies any chest pain. No Acute event overnight Objective Vitals Vital Signs Date Time Temp Pulse Resp B/P (MAP) Pulse Ox O2 Delivery O2 Flow Rate FiO2 08/21/17 09:57 97 Simple Mask 6.00 08/21/17 06:00 80 08/21/17 05:00 76 08/21/17 04:00 97 Simple Mask 6.00 08/21/17 04:00 81 08/21/17 04:00 81 08/21/17 04:00 81 20 128/44 (72) 100 08/21/17 03:00 81 08/21/17 02:00 79 08/21/17 02:00 97 Simple Mask 6.00 08/21/17 02:00 98.3 79 18 112/58 (76) 97 08/21/17 02:00 79 08/21/17 01:00 85 08/21/17 00:00 98.8 70 16 97/53 (68) 92 08/21/17 00:00 98 Simple Mask 6.00 08/21/17 00:00 70 08/21/17 00:00 96 08/20/17 23:00 75 08/20/17 22:00 80 08/20/17 21:00 78 08/20/17 20:14 94 21 08/20/17 20:00 88 08/20/17 20:00 96 08/20/17 20:00 98.5 88 20 121/65 (83) 95 08/20/17 20:00 98 Simple Mask 6.00 08/20/17 19:00 102 08/20/17 16:00 Room Air 08/20/17 16:00 98.6 87 18 116/63 (80) 96 08/20/17 16:00 69 08/20/17 15:00 86 08/20/17 14:00 96 08/20/17 12:59 99 08/20/17 12:00 97 Nasal Cannula 3.00 08/20/17 12:00 98.4 94 18 132/69 (90) 98 08/20/17 11:00 88 I/O 08/20/17 08/20/17 08/20/17 08/21/17 08/21/17 08/21/17 07:00 15:00 23:00 07:00 15:00 23:00 Intake Total 750 ml 366 ml 620 ml 0 ml Output Total 700 ml 750 ml 650 ml Balance 50 ml 366 ml -130 ml -650 ml Intake Oral 0 ml 620 ml 0 ml IV Total 750 ml 366 ml Output Urine Total 700 ml 750 ml 650 ml # Voids 3 1 # Bowel Movements 0 0 0 Result Diagram: 08/21/17 0205 08/21/17 0205 Imaging Last Impressions Chest X-Ray 08/19/17 1546 Signed Impressions: Service Date/Time: Saturday, August 19, 2017 15:54 - CONCLUSION: No acute disease. Zackery Oneill Jr., MD Objective Remarks GENERAL: NAD SKIN: Warm and dry. HEAD: Normocephalic. EYES: No scleral icterus. No injection or drainage. NECK: Supple, trachea midline. No JVD or lymphadenopathy. CARDIOVASCULAR: Regular rate and rhythm without murmurs, gallops, or rubs. RESPIRATORY: Breath sounds equal bilaterally. No accessory muscle use. GASTROINTESTINAL: Abdomen soft, non-tender, nondistended. MUSCULOSKELETAL: No cyanosis, or edema. BACK: Nontender without obvious deformity. No CVA tenderness. A/P Problem List: (1) STEMI (ST elevation myocardial infarction) ICD Code: I21.3 - ST elevation (STEMI) myocardial infarction of unspecified site Status: Acute (2) Hypertension ICD Code: I10 - Essential (primary) hypertension Status: Chronic (3) Hyperlipidemia ICD Code: E78.5 - Hyperlipidemia, unspecified Status: Chronic Assessment and Plan 62-year-old man with STEMI - Status post cardiac catheterization and [place] stent in the circumflex - Continue with Aspirin, Brilanta, Atorvastatin, Tirofiban - Hold beta abner due to symptomatic bradycardia -2-D echo pending - Management per cardiology Bradycardia - Status post acute myocardial infarction - Atropine when necessary - External pacer for heart rate less than 35 - Plan for AICD placement 08/22/17 Hypertension -Continue with Lisinopril, Norvasc, Clonidine Dyslipidemia - Currently on Atorvastatin DVT GI prophylaxis - Teds SCDs - Pharmacological DVT prophylaxis per cardiology Problem Qualifiers (1) STEMI (ST elevation myocardial infarction): Qualified Codes: I21.21 - ST elevation (STEMI) myocardial infarction involving left circumflex coronary artery (2) Hypertension: Qualified Codes: I10 - Essential (primary) hypertension (3) Hyperlipidemia: Qualified Codes: E78.2 - Mixed hyperlipidemia Milton Jimenez MD Aug 21, 2017 10:43
[2017-08-21 11:25] LABS: FREE T4 1.1 NG/DL (0.76-1.46)
[2017-08-21 11:28] LABS: TROPONIN I 10.6 NG/ML (0.02-0.05)
--- NOTE | 2017-08-21 13:47 | PD.CARD.PN ---
Subjective Subjective Remarks No CP. Intermittent mild dyspnea. Denies dizziness, palpitations. Objective Medications Item Value Date Time Aspirin 81 mg 08/20/17899 (Aspirin Chew) DAILY/PO 08/20/17937 Ticagrelor 90 mg 08/20/17899 (Brilinta) BID/PO 08/20/172020 Amlodipine 10 mg 08/20/17899 Besylate DAILY/PO 08/21/17926 (Norvasc) Enalapril Maleate 10 mg 08/20/17899 (Vasotec) BID/PO 08/21/17926 Atorvastatin 40 mg 08/19/17 2100 Calcium HS/PO 08/20/172020 (Lipitor) Current Medications Medications (Trade) Dose Ordered Sig/Luis Angel Route Start Time Stop Time Status Last Admin (NS Flush) 2 ml UNSCH PRN IVF 08/19/17 16:00 08/20/17 20:22 (Aspirin Chew) 81 mg DAILY PO 08/20/17 09:00 08/20/17 09:38 (Brilinta) 90 mg BID PO 08/20/17 09:00 08/20/17 20:21 (Lipitor) 40 mg HS PO 08/19/17 21:00 08/20/17 20:21 (Ativan Inj) 0.5 mg Q4H PRN IV 08/20/17 00:30 (Norvasc) 10 mg DAILY PO 08/20/17 09:00 08/21/17 09:27 (Vasotec) 10 mg BID PO 08/20/17 09:00 08/21/17 09:27 (Atropine Inj) 0.5 mg Q5M PRN IV PUSH 08/21/17 02:30 Sodium Chloride 1,000 ml @ 125 mls/hr Q8H IV 08/22/17 05:00 Cefazolin Sodium 1000 mg/Sodium Chloride 250 ml @ 0 mls/hr ONCE IV 08/22/17 11:00 08/24/17 10:59 Vancomycin HCl 1000 mg/Sodium Chloride 250 ml @ 0 mls/hr ONCE IV 08/22/17 11:00 08/24/17 10:59 (Betadine 5% Antisepsis Kit) 1 applic ONCE TOPICAL 08/21/17 10:30 08/24/17 10:29 (Bactroban Nasal 2% Oint) 1 applic ONCE EACH NARE 08/21/17 10:30 08/24/17 10:29 (Chlorhexidine 2% Cloth) 1 pack ONCE TOPICAL 08/21/17 10:30 08/24/17 10:29 Vital Signs / I&O Vital Signs Date Time Temp Pulse Resp B/P (MAP) Pulse Ox O2 Delivery O2 Flow Rate FiO2 08/21/17 10:00 66 08/21/17 10:00 66 08/21/17 09:57 97 Simple Mask 6.00 08/21/17 08:00 98.1 85 26 118/59 (78) 93 08/21/17 08:00 87 08/21/17 08:00 94 Room Air Simple Mask 08/21/17 08:00 79 08/21/17 06:00 80 08/21/17 05:00 76 08/21/17 04:00 97 Simple Mask 6.00 08/21/17 04:00 81 08/21/17 04:00 81 08/21/17 04:00 81 20 128/44 (72) 100 08/21/17 03:00 81 08/21/17 02:00 79 08/21/17 02:00 97 Simple Mask 6.00 08/21/17 02:00 98.3 79 18 112/58 (76) 97 08/21/17 02:00 79 08/21/17 01:00 85 08/21/17 00:00 98.8 70 16 97/53 (68) 92 08/21/17 00:00 98 Simple Mask 6.00 08/21/17 00:00 70 08/21/17 00:00 96 08/20/17 23:00 75 08/20/17 22:00 80 08/20/17 21:00 78 08/20/17 20:14 94 21 08/20/17 20:00 88 08/20/17 20:00 96 08/20/17 20:00 98.5 88 20 121/65 (83) 95 08/20/17 20:00 98 Simple Mask 6.00 08/20/17 19:00 102 08/20/17 16:00 Room Air 08/20/17 16:00 98.6 87 18 116/63 (80) 96 08/20/17 16:00 69 08/20/17 15:00 86 08/20/17 14:00 96 I/O 08/20/17 08/20/17 08/20/17 08/21/17 08/21/17 08/21/17 07:00 15:00 23:00 07:00 15:00 23:00 Intake Total 750 ml 366 ml 620 ml 0 ml Output Total 700 ml 750 ml 650 ml Balance 50 ml 366 ml -130 ml -650 ml Intake Oral 0 ml 620 ml 0 ml IV Total 750 ml 366 ml Output Urine Total 700 ml 750 ml 650 ml # Voids 3 1 # Bowel Movements 0 0 0 Physical Exam GENERAL: Well developed, well nourished. No acute distress. HEENT: Jugular venous pressure is normal. CHEST: Lungs clear to anteriorly. CARDIAC: Regular rate and rhythm without S3, S4, or murmur. ABDOMEN: Soft, nontender, no hepatosplenomegaly. Bowel sounds present. EXTREMITIES: No clubbing, cyanosis, or edema. Laboratory Laboratory Tests Test 08/21/17 01:40 08/21/17 02:05 08/21/17 09:41 Nasal Screen MRSA (PCR) MRSA NOT DETECTED White Blood Count 9.8 TH/MM3 Red Blood Count 4.49 MIL/MM3 Hemoglobin 13.9 GM/DL Hematocrit 39.3 % Mean Corpuscular Volume 87.5 FL Mean Corpuscular Hemoglobin 30.9 PG Mean Corpuscular Hemoglobin Concent 35.3 % Red Cell Distribution Width 13.4 % Platelet Count 201 TH/MM3 Mean Platelet Volume 8.7 FL Neutrophils (%) (Auto) 80.6 % Lymphocytes (%) (Auto) 12.2 % Monocytes (%) (Auto) 6.4 % Eosinophils (%) (Auto) 0.4 % Basophils (%) (Auto) 0.4 % Neutrophils # (Auto) 7.9 TH/MM3 Lymphocytes # (Auto) 1.2 TH/MM3 Monocytes # (Auto) 0.6 TH/MM3 Eosinophils # (Auto) 0.0 TH/MM3 Basophils # (Auto) 0.0 TH/MM3 CBC Comment DIFF FINAL Differential Comment Blood Urea Nitrogen 14 MG/DL Creatinine 0.88 MG/DL Random Glucose 165 MG/DL Total Protein 6.4 GM/DL Albumin 3.2 GM/DL Calcium Level 7.9 MG/DL Phosphorus Level 2.7 MG/DL Magnesium Level 2.1 MG/DL Alkaline Phosphatase 61 U/L Aspartate Amino Transf (AST/SGOT) 147 U/L Alanine Aminotransferase (ALT/SGPT) 119 U/L Total Bilirubin 0.6 MG/DL Sodium Level 135 MEQ/L Potassium Level 4.0 MEQ/L Chloride Level 103 MEQ/L Carbon Dioxide Level 26.4 MEQ/L Anion Gap 6 MEQ/L Estimat Glomerular Filtration Rate 87 ML/MIN Troponin I 14.00 NG/ML 10.60 NG/ML Thyroid Stimulating Hormone 3rd Gen 0.646 uIU/ML Free Thyroxine 1.10 NG/DL Assessment and Plan Problem List: (1) STEMI (ST elevation myocardial infarction) ICD Codes: I21.3 - ST elevation (STEMI) myocardial infarction of unspecified site Status: Acute Plan: Continued problems with symptomatic bradycardia, pauses. No evidence for subacute thrombosis of stent placed 08/19/17. Troponin levels trending downward. No recurrent angina. Repeat EKG with resolution of initial marked ST elevation. Discussed with patient and his . Bradyarrhythmias probably a result of his inferior RI, and likely will resolve, but difficult to tell with certainty. Patient and prefer proceeding with pacemaker implantation rather than continued observation, especially as patient from out of town and to travel in near future. REC keep off beta abner therapy for now continue ROSLYN-I, Brilinta, aspirin overall rec permanent pacemaker implant tomorrow; nature of procedure, risks outlined to patient (2) Hyperlipidemia ICD Codes: E78.5 - Hyperlipidemia, unspecified Status: Chronic Plan: Suboptimal lipid profile. Continue statin therapy. (3) Hypertension ICD Codes: I10 - Essential (primary) hypertension Status: Chronic Plan: Stable. Normotensive. Resume beta abner after pacemaker implanted. Code Status full code Discussed Condition With patient and , at length Problem Qualifiers (1) STEMI (ST elevation myocardial infarction): Qualified Codes: I21.21 - ST elevation (STEMI) myocardial infarction involving left circumflex coronary artery (2) Hyperlipidemia: Qualified Codes: E78.2 - Mixed hyperlipidemia (3) Hypertension: Qualified Codes: I10 - Essential (primary) hypertension Cornell Calvert MD Aug 21, 2017 13:47
[2017-08-21] MEDS: ASPIRIN 81 MG CHEW TAB PO SCH (13:57)
[2017-08-21] MEDS: TICAGRELOR 90 MG TAB PO SCH ×2 (13:57→22:09)
--- NOTE | 2017-08-21 14:28 | ECHRPT ---
Indication: r/o michael eff/ mr CONCLUSIONS Normal left ventricular size. EF @ 50% Trace mitral valve regurgitation. No aortic valve regurgitation. No aortic valve stenosis. There is mild tricuspid valve regurgitation. The pulmonary valve is not well visualized. There is a small pericardial effusion present. No obvious hemodynamic compromise but study is vey technically limited and right atrium can not be clearly seen 1.3 cm BP: / HR: Rhythm: MEASUREMENTS (Male / Female) Normal Values Technical Quality:Technically difficult study 2D ECHO LV Diastolic Diameter PLAX 5.2 cm 4.2 - 5.9 / 3.9 - 5.3 cm LV Systolic Diameter PLAX 3.7 cm IVS Diastolic Thickness 1.2 cm 0.6 - 1.0 / 0.6 - 0.9 cm LVPW Diastolic Thickness 0.8 cm 0.6 - 1.0 / 0.6 - 0.9 cm LV Relative Wall Thickness 0.4 RV Internal Dim ED PLAX 2.9 cm M-MODE Aortic Root Diameter MM 3.7 cm LA Systolic Diameter MM 3.6 cm LA Ao Ratio MM 1.0 DOPPLER Mitral E Point Velocity 58.7 cm/s Mitral A Point Velocity 60.2 cm/s Mitral E to A Ratio 1.0 LV E' Lateral Velocity 9.6 cm/s Mitral E to LV E' Lateral Ratio 6.1 LV E' Septal Velocity 9.6 cm/s Mitral E to LV E' Septal Ratio 6.1 FINDINGS LEFT VENTRICLE Normal left ventricular size. The left ventricular systolic function is normal with an estimated ejection fraction in the range of 60-65%. RIGHT VENTRICLE Normal right ventricular size and systolic function. LEFT ATRIUM The left atrial size is normal. RIGHT ATRIUM The right atrial size is normal. ATRIAL SEPTUM Normal atrial septal thickness without atrial level shunting by limited color doppler interrogation. AORTA The aortic root and proximal ascending aorta are normal in size on limited imaging. MITRAL VALVE Structurally normal mitral valve. Trace mitral valve regurgitation. AORTIC VALVE Trileaflet aortic valve. No aortic valve regurgitation. No aortic valve stenosis. TRICUSPID VALVE Structurally normal tricuspid valve. There is mild tricuspid valve regurgitation. PULMONARY VALVE The pulmonary valve is not well visualized. VESSELS The inferior vena cava is normal in size. PERICARDIUM There is a small pericardial effusion present. 1.3 cm Oscar Bundy MD, FACC, [facility] (Electronically Signed) Final Date:21 August 2017 14:27
--- NOTE | 2017-08-21 14:58 | EKG ---
Date Performed: 08/20/2017 Time Performed: 23:49:00 PTAGE: 62 years EKG: Sinus rhythm Severe right axis deviation Right bundle branch block Inferior infarct - age undetermined Abnormal E CG PREVIOUS TRACING 08/19/17 Sinus rhythm has returned. Inferior infarct is new since prior silvestre ng. Clinical correlation recommended. DOCTOR: Ck Mcmahon Interpretating Date/Time 08/21/2017 14:55:38
[2017-08-21] MEDS: ATORVASTATIN 40 MG TAB PO SCH (22:09)
[2017-08-22] VITALS (24 sets, daily range): BP systolic 93–131; BP diastolic 24–67; PULSE 48–84; RESP 9–33; TEMP 97.9–98.8; O2SAT 93–96
[2017-08-22] MEDS: SODIUM CHLOR 0.9% 1000 ML INJ 1,000 ML IV SCH ×3 (06:59→21:00)
[2017-08-22] MEDS: TICAGRELOR 90 MG TAB PO SCH ×2 (09:00→21:03)
[2017-08-22] MEDS: ASPIRIN 81 MG CHEW TAB PO SCH (09:49)
[2017-08-22] MEDS: ENALAPRIL MALEATE 5 MG TAB PO SCH ×2 (09:49→20:57)
[2017-08-22] MEDS ORDERED: ceFAZolin INJ 1,000 MG in SODIUM CHLORIDE 0.9% INJ 250 ML IV SCH (11:00)
[2017-08-22] MEDS ORDERED: VANCOMYCIN INJ 1,000 MG in SODIUM CHLOR 0.9% 250 ML INJ 250 ML IV SCH (11:00)
--- NOTE | 2017-08-22 11:46 | HHI.PR ---
Subjective Remarks Follow-up ST elevation DE/bradycardia 08/21/17-patient seen and examined, reports occasional shortness of breath however denies any chest pain. No Acute event overnight 08/22/17-patient seen and examined, port episode of shortness of breath associated with low heart rates overnight. Currently nothing by mouth pending pacemaker implantation Objective Vitals Vital Signs Date Time Temp Pulse Resp B/P (MAP) Pulse Ox O2 Delivery O2 Flow Rate FiO2 08/22/17 07:30 95 08/22/17 06:00 81 08/22/17 05:00 68 08/22/17 04:00 75 08/22/17 04:00 94 Room Air 08/22/17 04:00 75 08/22/17 04:00 98.3 75 15 118/59 (78) 94 08/22/17 03:20 93 08/22/17 03:00 48 08/22/17 02:00 71 08/22/17 01:00 81 08/22/17 00:05 96 08/22/17 00:00 69 08/22/17 00:00 69 15 93/52 (66) 94 08/22/17 00:00 96 Room Air 08/22/17 00:00 69 08/21/17 23:00 70 08/21/17 22:00 74 08/21/17 21:00 78 08/21/17 20:24 97 08/21/17 20:00 98.9 90 13 116/56 (76) 96 08/21/17 20:00 90 08/21/17 20:00 96 Room Air 08/21/17 20:00 90 08/21/17 19:00 86 08/21/17 18:00 78 08/21/17 16:00 95 Room Air Simple Mask 08/21/17 16:00 98.4 84 25 115/70 (85) 96 08/21/17 16:00 84 08/21/17 16:00 81 08/21/17 14:00 97 Room Air Simple Mask 08/21/17 14:00 85 08/21/17 14:00 85 08/21/17 12:00 98.1 82 26 126/64 (84) 95 08/21/17 12:00 95 Room Air Simple Mask 08/21/17 12:00 82 08/21/17 12:00 82 I/O 08/21/17 08/21/17 08/21/17 08/22/17 08/22/17 08/22/17 07:00 15:00 23:00 07:00 15:00 23:00 Intake Total 0 ml 1000 ml 500 ml Output Total 650 ml 1500 ml 1975 ml Balance -650 ml -500 ml -1475 ml Intake Oral 0 ml 1000 ml 500 ml Output Urine Total 650 ml 1500 ml 1975 ml # Voids 1 # Bowel Movements 0 0 1 Result Diagram: 08/21/1720408/21/17204 Objective Remarks GENERAL: NAD SKIN: Warm and dry. HEAD: Normocephalic. EYES: No scleral icterus. No injection or drainage. NECK: Supple, trachea midline. No JVD or lymphadenopathy. CARDIOVASCULAR: Regular rate and rhythm without murmurs, gallops, or rubs. RESPIRATORY: Breath sounds equal bilaterally. No accessory muscle use. GASTROINTESTINAL: Abdomen soft, non-tender, nondistended. MUSCULOSKELETAL: No cyanosis, or edema. BACK: Nontender without obvious deformity. No CVA tenderness. A/P Problem List: (1) STEMI (ST elevation myocardial infarction) ICD Code: I21.3 - ST elevation (STEMI) myocardial infarction of unspecified site Status: Acute (2) Hypertension ICD Code: I10 - Essential (primary) hypertension Status: Chronic (3) Hyperlipidemia ICD Code: E78.5 - Hyperlipidemia, unspecified Status: Chronic Assessment and Plan 62-year-old man with STEMI - Status post cardiac catheterization and Adan stent in the circumflex - Continue with Aspirin, Brilanta, Atorvastatin,ROSLNY-I - Hold beta abner due to symptomatic bradycardia -2-D echo pending - Management per cardiology Bradycardia - Status post acute myocardial infarction - Atropine when necessary - External pacer for heart rate less than 35 - Plan for AICD placement today 08/22/17 Hypertension -Continue with Lisinopril, Norvasc, Clonidine. Resume beta abner after pacemaker implantation Dyslipidemia - Currently on Atorvastatin DVT GI prophylaxis - Teds SCDs - Pharmacological DVT prophylaxis per cardiology Problem Qualifiers (1) STEMI (ST elevation myocardial infarction): Qualified Codes: I21.21 - ST elevation (STEMI) myocardial infarction involving left circumflex coronary artery (2) Hypertension: Qualified Codes: I10 - Essential (primary) hypertension (3) Hyperlipidemia: Qualified Codes: E78.2 - Mixed hyperlipidemia Pontechris,Milton MD Aug 22, 2017 11:46
[2017-08-22] MEDS ORDERED: VANCOMYCIN HCL 1000 MG VIAL ONE (13:12)
[2017-08-22] MEDS ORDERED: LIDOCAINE HCL 2% 50 ML VIAL ONE (13:12)
[2017-08-22] MEDS ORDERED: ceFAZolin INJ 1,000 MG VIAL ONE (13:13)
[2017-08-22] MEDS ORDERED: SODIUM CHLOR 0.9% 250 ML INJ 250 ML ONE (13:13)
[2017-08-22] MEDS ORDERED: PROPOFOL 200 MG/20 ML AMP ONE (13:42)
[2017-08-22] MEDS ORDERED: MIDAZOLAM HCL 2 MG/2 ML VIAL ONE ×2 (13:43→15:13)
[2017-08-22] MEDS ORDERED: KETAMINE HCL 500 MG/5 ML VIAL ONE (13:43)
--- NOTE | 2017-08-22 14:58 | CATHPROC ---
Patient Name: ROSA JACKSON Study #: [id number] Initial MD: Cornell Calvert Date of : 1955 Study Date: 08/22/2017 Cardiac Catheterization Report 08/22/2017 2:58:48 PM Financial #: [id number] 1 of 9 Patient Name: ROSA JACKSON Study #: [id number] Initial MD: Cornell Calvert Date of : 1955 Study Date: 08/22/2017 Entire Case Report Patient Information Patient Name ROSA JACKSON Date of 1955 Age 62 years Financial # [id number] Gender M AlternateID Lab Number 6 Room Number 1306 Height (in) 72.0 Height (cm) 182.8 BSA 2.53 Weight (lbs) 298.5 Weight (kg) 135.7 Patient Address/Phone Number Home Address [facility] Home Phone Number [facility] [phone] Study Information Study Number Admission Scheduled Start Study Start [id number] Aug 19 2017 3:55PM 08/22/2017 Aug 22 2017 12:44PM [facility] Cardiac Pacer/ICD Admit Source Facility Department Other [facility] - Payroll Representative Physician and Clinical Staff Initial Cornell Eubanks Wool Fleece Grader Yordan Villatoro,RT(R) Other Anesthesia, HOT TAR ROOFER HELPER Recorder María Conte,VIVIEN Scrub Cinda Castillo,RT(R) TECH2 Procedures Performed Procedure Lead Insertion 08/22/2017 2:58:48 PM Financial #: [id number] 2 of 9 Patient Name: ROSA JACKSON Study #: [id number] Initial MD: Cornell Calvert Date of : 1955 Study Date: 08/22/2017 Equipment Time Automobile Upholsterer Description Size Mfg Part Number Used/Scraped 14:25 BIOTRONIK LEAD, SOLIA 60 PRO MRI * [id number] Used 14:31 BIOTRONIK LEAD, SOLIA 60 53 PRO MRI * [id number] Used 14:38 BIOTRONIK PACEMAKER, ELUNA 8 DR-T DDDR [id number] Used TP-1103 12:46 MEDLINE INDUSTRIES SUTURE, STRIP PLUS 1/2" * Used *[id number] 12:46 MEDLINE PACER ADHESIVE, MASTISOL 2/3CC 2/3CC 0523-48 Used 12:46 MEDLINE PACER ORTEGA, LIMB * 2530 *[id number] Used [id number] 12:46 MEDLINE PACER PACK, PACER CUSTOM * Used *[id number] 12:46 MEDLINE PACER PEN, SKIN DUAL W/ RULER * Used *[id number] 14:15 [email or web address] PACER SAFE SHEATH, FR7, 13CM FR 7 CLS-1007 Used 14:15 [email or web address] PACER SAFE SHEATH, FR7, 13CM FR 7 CLS-1007 Used 14:16 Needle Sponge Count 2 22 Used 14:16 Needle Sponge Count 25 1 Used 14:16 Needle Sponge Count 4 4 Used [id number] *[id number] SUTURE, 3-0 VICRYL [SH] ([id number]) SUTURE, 3-0 VICRYL [SH] ([id number]) SUTURE, 4-0 MONOCRYL [PS2] (Y496G) [id number] 12:46 [employer],WARM AIR CCL * Used *[id number] [facility] PAD, ELECTROSURGICAL 12:46 * E7507 *[id number] Used SURGICAL GROUNDING ORANGE 3920-0796 12:46 [employer]. / * Used *88759 Equipment Model, Serial, Lot Number and Expiration Data Description Model Number Serial Number Lot Number Expiration Date LEAD, SOLIA 60 PRO MRI [id number] 06-05-2019 LEAD, SOLIA 60 53 PRO MRI [id number] 06-05-2019 PACEMAKER, ELUNA 8 SARAH [id number] 04-05-2018 Insurance Information Insurance Payor Health Care Third Libertarian Third Libertarian Number [employer] 08/22/2017 2:58:48 PM Financial #: [id number] 3 of 9 Patient Name: ROSA JACKSON Study #: [id number] Initial MD: Cornell Calvert Date of : 1955 Study Date: 8 History: Allergies Allergy Reaction No Known Allergies History: Risk Factors Dyslipidemia Yes Labs Hgb (g/dl) Hct (%) RBC (MIL/MM3) WBC (l/cumm) Platelets (thousands) 11.60-17.00 35.00-51.00 4.00-5.90 4.00-11.00 150.00-450.00 13.0 39 4.5 9.8 201 Glucose (mg/dl) BUN (mg/dl) Creatinine (mg/dl) BUN:Creatinine (1:x) 74.00-106.00 7.00-18.00 0.50-1.30 10.00-20.00 165 12 0.8 15 Na (meq/l) K (meq/l) 136.00-145.00 3.50-5.10 135 4 INR (PTT:PT) 0.90-1.10 1 Medication Medication Total Dose (Bolus/Oral) Medication Total Dosage/Unit 2% XYLOCAINE 50 mL Medications (Bolus/Oral) Medication Time Given Dosage/Unit Administered By Reason 2% XYLOCAINE 08/22/2017 2:20:00 PM 50 mL Cornell Calvert 50 mL 2% XYLOCAINE given in lab by Cornell Calvert in Left shoulder via Subcutaneous. Medication (Drip) Medication Time Given Dosage/Unit Concentration/Unit Diluent (ml) Solution ANCEF 08/22/2017 1:47:35 PM 1 g 1 g ANCEF given in lab by Anesthesia, HOT TAR ROOFER HELPER in Right Hand via Peripheral IV. Ordered by Cornell Calvert. Reason: As per physicians verbal order. VANCOMYCIN DRIP 08/22/2017 1:47:13 PM 1 g 1 g VANCOMYCIN DRIP given in lab by Anesthesia, HOT TAR ROOFER HELPER in Right Hand via Peripheral IV. Ordered by Cornell Ford. Reason: As per physicians verbal order. 08/22/2017 2:58:48 PM Financial #: [id number] 4 of 9 Patient Name: ROSA JACKSON Study #: [id number] Initial MD: Cornell Calvert Date of : 1955 Study Date: 08/22/2017 Initial Case Assessment Cardiovascular HR Rhythm NIBP Chest Pain 78 sr 161/71 0 Edema Present Skin color Skin None Normal Warm Dry Circulatory - Right Pulses Radial 1 Scale (0,1,2,3,4,d) Circulatory - Left Pulses Radial 1 Scale (0,1,2,3,4,d) Circulatory - Lower Extremities Color Lower Right Color Lower Left Normal Normal Neurological State Oriented to time-place- Alert Moves all extremities person Respiration - General Respiration Rate SpO2 (%) O2 (lpm) (B/min) 20 97 6 08/22/2017 2:58:48 PM Financial #: [id number] 5 of 9 Patient Name: ROSA JACKSON Study #: [id number] Initial MD: Cornell Calvert Date of : 1955 Study Date: 08/22/2017 Final Case Assessment Cardiovascular HR Rhythm NIBP Chest Pain 81 sr 102/55 0 Edema Present Skin color Skin None Normal Warm Dry Circulatory - Right Pulses Radial 1 Scale (0,1,2,3,4,d) Circulatory - Left Pulses Radial 1 Scale (0,1,2,3,4,d) Circulatory - Lower Extremities Color Lower Right Color Lower Left Normal Normal Neurological State Lethargic Moves all extremities Respiration - General Respiration Rate SpO2 (%) O2 (lpm) (B/min) 18 98 6 Chronological Log Time Study Chronological Log 13:45:00 Patient arrived via Bed. 13:45:18 Patient Name, D.O.B, / Armband Verified By R.N. 13:45:25 Patient has been NPO for More than 6Hrs. 13:45:28 Pre-op and post- op instructions given; patient acknowledges understanding of instructions. 13:45:30 Consent signed by the physician and the patient and verified by the Payroll Representative staff. 13:45:30 Skin Breakdown- none per pt 13:45:32 Verbal Stimulation=2 Physical Stimulation=2 Airway=2 Respiration=2 TOTAL=8. (0=absent, 1=li mited, 2=present) 13:45:50 Anesthesia at bedside. Assumes care of patient. 13:46:39 Patient Warmer Placed on the Table. 08/22/2017 2:58:48 PM Financial #: [id number] 6 of 9 Patient Name: ROSA JACKSON Study #: [id number] Initial MD: Cornell Calvert Date of : 1955 Study Date: 08/22/2017 13:46:45 Disposable Defibrillator Pads Placed On Patient. 13:46:50 Emir Prominences Protected 1 g VANCOMYCIN DRIP given in lab by Anesthesia, HOT TAR ROOFER HELPER in Right Hand via Peripheral IV. Ordered Cornell Healy. 13:47:13 Reason: As per physicians verbal order. 1 g ANCEF given in lab by Anesthesia, HOT TAR ROOFER HELPER in Right Hand via Peripheral IV. Ordered by Zan Calvert. Reason: As per 13:47:35 physicians verbal order. 13:48:48 History and physical on the chart or being dictated. 13:50:28 Table restraints applied according to hospital policy 13:51:42 Upper Chest Prepped Times Two. 13:52:41 Bovie ground pad applied to: right thigh First Sponge And Instrument Count Done by Cornell Calvert. 13:55:20 Hypo's: 4, Sponges: 25, Bovie/scratch: 2 Sutures: 6, Blades: 2, Instruments: 26, Syveck Patches: ~SYVECK PATCH~ Assessment: Initial Case, HR=78 BPM, Rhythm=sr, MEIE=082/71 mmhg, Chest Pain=0, Edema=None, Col or=Normal, Skin = Warm, Dry Right Pulses: Radial=1 Left Pulses: Radial=1 14:00:00 Lower Right Extremities: Color=Normal Lower Left Extremities: Color=Normal Neurological: State=Alert, Ox3, CARVALHO Respiration: Resp=20 B/min, SpO2=97 %, O2=6 lpm 14:11:53 MD arrived. 14:11:56 A # 18 IV was noted in the Hand (right). Grade = 0 0.9ns kvo Time Out. Correct patient, procedure, procedure equipment, site and side verified with physicia n present. Time 14:19:00 concurred by MD, individual staff and HOT TAR ROOFER HELPER. Time Out #2 - Consents verified, patient in correct position, all results are labled and displa yed, safety precautions 14:19:26 taken, antibiotics administered. Time out concurred by MD, individual staff and HOT TAR ROOFER HELPER in procedu re 14:19:40 Case Start 14:20:00 50 mL 2% XYLOCAINE given in lab by Cornell Calvert in Left shoulder via Subcutaneous. 14:20:44 Surgical Incision Made. 14:21:21 A pocket was created at the L Upper Chest. 14:23:06 Vascular access was obtained in the Subclav. Vein (Lft. 14:23:09 Wire inserted 14:23:10 A SAFE SHEATH, FR7, 13CM FR 7 was advanced into the Subclav. Vein (Lft using the Modified S eldinger technique. 14:23:21 Vascular access was obtained in the Subclav. Vein (Lft. 14:23:24 Wire inserted 14:23:25 A SAFE SHEATH, FR7, 13CM FR 7 was advanced into the Subclav. Vein (Lft using the Modified S eldinger technique. 14:24:47 A LEAD, SOLIA 60 PRO MRI * was inserted and positioned in the RV. 14:25:29 Lead placement verified under fluoroscopy 14:28:37 The RV lead impedance and threshold being tested. 14:29:30 The RV lead was sutured to the fascia. 14:30:25 A SAFE SHEATH, FR7, 13CM FR 7 was advanced into the Subclav. Vein (Lft using the Modified S eldinger technique. 08/22/2017 2:58:48 PM Financial #: [id number] 7 of 9 Patient Name: ROSA JACKSON Study #: [id number] Initial MD: Cornell Calvert Date of : 1955 Study Date: 08/22/2017 14:30:42 A LEAD, SOLIA 60 53 PRO MRI * was inserted and positioned in the RA. 14:32:51 Lead placement verified under fluoroscopy 14:35:28 The Atrial lead impedance and threshold is being tested. 14:36:52 The Atrial lead was sutured to the fascia. 14:38:49 A PACEMAKER, ELUNA 8 DR-T DDDR was connected and placed in the pocket. Second Sponge And Instrument Count Done by Cornell Calvert. 14:44:07 Hypo's: 4, Sponges: 25, Bovie/scratch: 2 Sutures: 6, Blades: 2, Instruments:, Syveck Patches: ~SYVECK PATCH~ 14:53:00 The pocket was closed. Final Sponge And Instrument Count Done by Cornell Calvert. 14:53:28 Hypo's: 4, Sponges: 25, Bovie/scratch: 2 Sutures: 6, Blades: 2, Instruments: 26, Syveck Patches: ~SYVECK PATCH~ 14:54:02 Implant Procedure was performed. 14:54:08 A PPM Implant . (Dual) 14:54:23 Case End 14:54:50 Steri-strips and a sterile dressing applied to site. 14:56:16 ISCU called. Spoke to Jesus 14:56:30 Bedside Report will be given. Assessment: Final Case, HR=81 BPM, Rhythm=sr, QZSK=771/55 mmhg, Chest Pain=0, Edema=None, Cooter r=Normal, Skin = Warm, Dry Right Pulses: Radial=1 Left Pulses: Radial=1 14:56:47 Lower Right Extremities: Color=Normal Lower Left Extremities: Color=Normal Neurological: State=Lethargic, CARVALHO Respiration: Resp=18 B/min, SpO2=98 %, O2=6 lpm 14:57:32 No case complications noted. 14:57:32 Cine recording checked. 14:57:35 Defibrillator and ground pads removed. Skin intact. 15:02:36 A sling was placed on the affected arm. 15:07:39 Patient moved to stretcher End Study - Contrast Media Used In Study Contrast Total Opened (mL) Total Used (mL) Total Wasted (mL) Unspecified 0 0 0 End Study - Maximum Contrast Load Max Contrast Load (mL) 848.0 08/22/2017 2:58:48 PM Financial #: [id number] Patient Name: ROSA JACKSON Study #: [id number] Initial MD: Cornell Calvert Date of : 1955 Study Date: 08/22/2017 End Study - Radiation Exposure Fluoro Time (minutes) 3.4 End Study - Patient Disposition Complications Transferred To Interventional Outcome No Telemetry Bed successful 08/22/2017 2:58:48 PM Financial #: [id number]
[2017-08-22] MEDS ORDERED: traMADol HCL 50 MG TAB PO PRN (15:00)
--- NOTE | 2017-08-22 15:04 | PD.CARD.PN ---
Subjective Subjective Remarks No CP, SOB, dizziness, palpitations. Objective Medications Current Medications Medications (Trade) Dose Ordered Sig/Luis Angel Route Start Time Stop Time Status Last Admin (NS Flush) 2 ml UNSCH PRN IVF 08/19/17 16:00 08/20/17 20:22 (Aspirin Chew) 81 mg DAILY PO 08/20/17 09:00 08/22/17 09:49 (Brilinta) 90 mg BID PO 08/20/17 09:00 08/21/17 22:09 (Lipitor) 40 mg HS PO 08/19/17 21:00 08/21/17 22:09 (Ativan Inj) 0.5 mg Q4H PRN IV 08/20/17 00:30 (Norvasc) 10 mg DAILY PO 08/20/17 09:00 08/22/17 09:49 (Vasotec) 10 mg BID PO 08/20/17 09:00 08/22/17 09:49 (Atropine Inj) 0.5 mg Q5M PRN IV PUSH 08/21/17 02:30 Sodium Chloride 1,000 ml @ 125 mls/hr Q8H IV 08/22/17 05:00 08/22/17 13:00 Cefazolin Sodium 1000 mg/Sodium Chloride 250 ml @ 0 mls/hr ONCE IV 08/22/17 11:00 08/24/17 10:59 Vancomycin HCl 1000 mg/Sodium Chloride 250 ml @ 0 mls/hr ONCE IV 08/22/17 11:00 08/24/17 10:59 (Betadine 5% Antisepsis Kit) 1 applic ONCE TOPICAL 08/21/17 10:30 08/24/17 10:29 (Bactroban Nasal 2% Oint) 1 applic ONCE EACH NARE 08/21/17 10:30 08/24/17 10:29 (Chlorhexidine 2% Cloth) 1 pack ONCE TOPICAL 08/21/17 10:30 08/24/17 10:29 Vital Signs / I&O Vital Signs Date Time Temp Pulse Resp B/P (MAP) Pulse Ox O2 Delivery O2 Flow Rate FiO2 08/22/17 07:30 95 08/22/17 06:00 81 08/22/17 05:00 68 08/22/17 04:00 75 08/22/17 04:00 94 Room Air 08/22/17 04:00 75 08/22/17 04:00 98.3 75 15 118/59 (78) 94 08/22/17 03:20 93 08/22/17 03:00 48 08/22/17 02:00 71 08/22/17 01:00 81 08/22/17 00:05 96 08/22/17 00:00 69 08/22/17 00:00 69 15 93/52 (66) 94 08/22/17 00:00 96 Room Air 08/22/17 00:00 69 08/21/17 23:00 70 08/21/17 22:00 74 08/21/17 21:00 78 08/21/17 20:24 97 08/21/17 20:00 98.9 90 13 116/56 (76) 96 08/21/17 20:00 90 08/21/17 20:00 96 Room Air 08/21/17 20:00 90 08/21/17 19:00 86 08/21/17 18:00 78 08/21/17 16:00 95 Room Air Simple Mask 08/21/17 16:00 98.4 84 25 115/70 (85) 96 08/21/17 16:00 84 08/21/17 16:00 81 I/O 08/21/17 08/21/17 08/21/17 08/22/17 08/22/17 08/22/17 07:00 15:00 23:00 07:00 15:00 23:00 Intake Total 0 ml 1000 ml 500 ml Output Total 650 ml 1500 ml 1975 ml Balance -650 ml -500 ml -1475 ml Intake Oral 0 ml 1000 ml 500 ml Output Urine Total 650 ml 1500 ml 1975 ml # Voids 1 # Bowel Movements 0 0 1 Physical Exam GENERAL: Well developed, well nourished. No acute distress. HEENT: Jugular venous pressure is normal. CHEST: Lungs clear to anteriorly. CARDIAC: Regular rate and rhythm without S3, S4, or murmur. ABDOMEN: Soft, nontender, no hepatosplenomegaly. Bowel sounds present. EXTREMITIES: No clubbing, cyanosis, or edema. Assessment and Plan Problem List: (1) STEMI (ST elevation myocardial infarction) ICD Codes: I21.3 - ST elevation (STEMI) myocardial infarction of unspecified site Status: Acute Plan: Stable overnight. No recurrent angina. Rhythm stable, NSR. Patient s/ p pacemaker implant today for persistent severe bradyarrhythmias s/p inferior MO. REC continue ROSLYN-I, Brilinta, aspirin; resume carvedilol OK to discharge patient tomorrow from my standpoint, f/u in our office this week for incision/pacemaker recheck before he begins travels back home to [place] (2) Hyperlipidemia ICD Codes: E78.5 - Hyperlipidemia, unspecified Status: Chronic Plan: Suboptimal lipid profile. Continue statin therapy. (3) Hypertension ICD Codes: I10 - Essential (primary) hypertension Status: Chronic Plan: Stable. Normotensive. Carvedilol resumed. Code Status full code Discussed Condition With patient's family Problem Qualifiers (1) STEMI (ST elevation myocardial infarction): Qualified Codes: I21.21 - ST elevation (STEMI) myocardial infarction involving left circumflex coronary artery (2) Hyperlipidemia: Qualified Codes: E78.2 - Mixed hyperlipidemia (3) Hypertension: Qualified Codes: I10 - Essential (primary) hypertension Cornell Calvert MD Aug 22, 2017 15:04
--- NOTE | 2017-08-22 15:52 | RADRPT ---
EXAM DATE/TIME: 08/22/2017 15:10 [facility] COMPARISON: CHEST SINGLE AP, August 19, 2017, 15:54. INDICATIONS : Evaluate for pneumothorax status post pacemaker placement. MEDICAL HISTORY : None. SURGICAL HISTORY : None. ENCOUNTER: Subsequent ACUITY: 1 day PAIN SCORE: Non-responsive. LOCATION: chest FINDINGS: Pacemaker on the left. No pneumothorax. Mild compensated cardiomegaly. CONCLUSION: Patient position, and no pneumothorax. Charly Rodriguez MD FACR on August 22, 2017 at 15:49 Board Certified Radiologist. This report was verified electronically.
[2017-08-22] MEDS: CARVEDILOL 3.125 MG TAB PO SCH (20:55)
[2017-08-22] MEDS: ATORVASTATIN 40 MG TAB PO SCH (21:02)
[2017-08-23] VITALS (16 sets, daily range): BP systolic 113–138; BP diastolic 57–79; PULSE 68–84; RESP 13–23; TEMP 98–98.6; O2SAT 93–96
[2017-08-23] MEDS ORDERED: VANCOMYCIN INJ 1,000 MG in SODIUM CHLOR 0.9% 250 ML INJ 250 ML IV SCH (03:00)
[2017-08-23] MEDS: SODIUM CHLOR 0.9% 1000 ML INJ 1,000 ML IV SCH ×2 (05:00→13:00)
[2017-08-23] MEDS: CARVEDILOL 3.125 MG TAB PO SCH (09:24)
[2017-08-23] MEDS: ASPIRIN 81 MG CHEW TAB PO SCH (09:24)
[2017-08-23] MEDS: TICAGRELOR 90 MG TAB PO SCH (09:24)
[2017-08-23] MEDS: ENALAPRIL MALEATE 5 MG TAB PO SCH (09:25)
[2017-08-23] MEDS ORDERED: AMLO10 PO (10:38)
[2017-08-23] MEDS ORDERED: BRIL90TA PO (10:38)
[2017-08-23] MEDS ORDERED: ASPI81 PO (10:38)
[2017-08-23] MEDS ORDERED: ENAL5TAB PO (10:38)
[2017-08-23] MEDS ORDERED: CARV3.125 PO (10:38)
[2017-08-23] MEDS ORDERED: ATOR40TA16 PO (10:38)
--- NOTE | 2017-08-23 10:41 | HHI.PR ---
Subjective Remarks Follow-up ST elevation CT/bradycardia 08/21/17-patient seen and examined, reports occasional shortness of breath however denies any chest pain. No Acute event overnight 08/22/17-patient seen and examined, port episode of shortness of breath associated with low heart rates overnight. Currently nothing by mouth pending pacemaker implantation 08/23/17-patient seen and examined, s/p AICD placed yesterday, no complaint of CP, SOB Objective Vitals Vital Signs Date Time Temp Pulse Resp B/P (MAP) Pulse Ox O2 Delivery O2 Flow Rate FiO2 08/23/17 08:03 94 21 08/23/17 06:00 68 08/23/17 05:00 78 08/23/17 04:00 74 08/23/17 04:00 93 Room Air 08/23/17 04:00 98.6 74 17 113/64 (80) 93 08/23/17 03:00 75 08/23/17 03:00 98.6 75 18 116/60 (78) 94 08/23/17 02:00 72 08/23/17 01:00 69 08/23/17 00:00 98.4 73 13 114/57 (76) 96 08/23/17 00:00 96 Room Air 08/23/17 00:00 73 08/22/17 23:00 98.8 76 14 105/55 (72) 95 08/22/17 23:00 76 08/22/17 22:00 68 08/22/17 20:00 98.1 82 30 130/59 (82) 93 08/22/17 20:00 93 Room Air 08/22/17 20:00 82 08/22/17 19:00 84 08/22/17 19:00 98.8 84 33 113/62 (79) 94 08/22/17 18:00 76 08/22/17 17:00 72 08/22/17 16:00 94 Room Air 08/22/17 16:00 98.1 74 17 131/60 (83) 94 08/22/17 16:00 74 08/22/17 13:00 80 08/22/17 12:00 71 08/22/17 12:00 98.1 71 9 129/24 (59) 94 08/22/17 12:00 94 Room Air 08/22/17 12:00 75 08/22/17 11:00 82 I/O 08/22/17 08/22/17 08/22/17 08/23/17 08/23/17 08/23/17 07:00 15:00 23:00 07:00 15:00 23:00 Intake Total 500 ml 570 ml Output Total 1975 ml Balance -1475 ml 570 ml Intake Oral 500 ml 320 ml IV Total 250 ml Output Urine Total 1975 ml # Voids 4 2 # Bowel Movements 1 1 0 Result Diagram: 08/21/17 0205 08/21/17 0205 Imaging Last Impressions Chest X-Ray 08/22/17 1459 Signed Impressions: Service Date/Time: Tuesday, August 22, 2017 15:10 - CONCLUSION: Patient position, and no pneumothorax. Charly Rodriguez MD FACR Objective Remarks GENERAL: NAD SKIN: Warm and dry. HEAD: Normocephalic. EYES: No scleral icterus. No injection or drainage. NECK: Supple, trachea midline. No JVD or lymphadenopathy. CARDIOVASCULAR: Regular rate and rhythm without murmurs, gallops, or rubs. dressing in place over insertion site of AICD RESPIRATORY: Breath sounds equal bilaterally. No accessory muscle use. GASTROINTESTINAL: Abdomen soft, non-tender, nondistended. MUSCULOSKELETAL: No cyanosis, or edema. BACK: Nontender without obvious deformity. No CVA tenderness. Procedures s/p pacemaker implant 08/22/17 A/P Problem List: (1) STEMI (ST elevation myocardial infarction) ICD Code: I21.3 - ST elevation (STEMI) myocardial infarction of unspecified site Status: Acute (2) Hypertension ICD Code: I10 - Essential (primary) hypertension Status: Chronic (3) Hyperlipidemia ICD Code: E78.5 - Hyperlipidemia, unspecified Status: Chronic Assessment and Plan 62-year-old man with STEMI - Status post cardiac catheterization and [place] stent in the circumflex - Continue with Aspirin, Brilanta, Atorvastatin,ROSLYN-I - Will resume beta abner since patient is s/p pacemaker implant 08/22/17 -2-D echo with 50% - Management per cardiology Bradycardia - Status post acute myocardial infarction - s/p AICD placement 08/22/17 Hypertension -Continue with Lisinopril, Norvasc, Clonidine. Resume beta abner Dyslipidemia - Currently on Atorvastatin DVT GI prophylaxis - Teds SCDs - Pharmacological DVT prophylaxis per cardiology Problem Qualifiers (1) STEMI (ST elevation myocardial infarction): Qualified Codes: I21.21 - ST elevation (STEMI) myocardial infarction involving left circumflex coronary artery (2) Hypertension: Qualified Codes: I10 - Essential (primary) hypertension (3) Hyperlipidemia: Qualified Codes: E78.2 - Mixed hyperlipidemia Milton Jimenez MD Aug 23, 2017 10:41
--- NOTE | 2017-08-23 10:47 | HHI.DS ---
Discharge Summary Admission Date Aug 19, 2017 at 15:55 Discharge Date: Aug 23, 2017 Admitting Diagnosis acute inferior STEMI (1) STEMI (ST elevation myocardial infarction) ICD Code: I21.3 - ST elevation (STEMI) myocardial infarction of unspecified site Status: Acute (2) Hypertension ICD Code: I10 - Essential (primary) hypertension Status: Chronic (3) Hyperlipidemia ICD Code: E78.5 - Hyperlipidemia, unspecified Status: Chronic Procedures s/p pacemaker implant 08/22/17 Brief History - From Admission 62-year-old gentleman admitted with acute chest pain having a STEMI. He has had anterior sternal pressure and heaviness for 2 hours duration. He was taken emergently to cardiac catheterization lab where the total occlusion in the mid left circumflex was treated with angioplasty and kathi stent placement. Patient was admitted to CVICU postprocedure where he developed periods of bradycardia 30s with altered mental status and agonal respiration. The critical care medicine was consulted by cardiology for assistance of management of bradycardia. CBC/BMP: 08/21/17 0205 08/21/17 0205 Significant Findings Laboratory Tests Test 08/21/17 01:40 08/21/17 02:05 08/21/17 09:41 Red Blood Count 4.49 MIL/MM3 (4.50-5.90) Neutrophils (%) (Auto) 80.6 % (16.0-70.0) Neutrophils # (Auto) 7.9 TH/MM3 (1.8-7.7) Random Glucose 165 MG/DL (74-106) Albumin 3.2 GM/DL (3.4-5.0) Calcium Level 7.9 MG/DL (8.5-10.1) Aspartate Amino Transf (AST/SGOT) 147 U/L (15-37) Alanine Aminotransferase (ALT/SGPT) 119 U/L (12-78) Sodium Level 135 MEQ/L (136-145) Estimat Glomerular Filtration Rate 87 ML/MIN (>89) Troponin I 14.00 NG/ML (0.02-0.05) 10.60 NG/ML (0.02-0.05) Imaging Last Impressions Chest X-Ray 08/22/17 1459 Signed Impressions: Service Date/Time: Tuesday, August 22, 2017 15:10 - CONCLUSION: Patient position, and no pneumothorax. Charly Rodriguez MD FACR PE at Discharge GENERAL: NAD SKIN: Warm and dry. HEAD: Normocephalic. EYES: No scleral icterus. No injection or drainage. NECK: Supple, trachea midline. No JVD or lymphadenopathy. CARDIOVASCULAR: Regular rate and rhythm without murmurs, gallops, or rubs. dressing in place over insertion site of AICD RESPIRATORY: Breath sounds equal bilaterally. No accessory muscle use. GASTROINTESTINAL: Abdomen soft, non-tender, nondistended. MUSCULOSKELETAL: No cyanosis, or edema. BACK: Nontender without obvious deformity. No CVA tenderness. Hospital Course while in the hospital, patient was treated for: STEMI - Status post cardiac catheterization and [place] stent in the circumflex - Treated with Aspirin, Brilanta, Atorvastatin,ROSLYN-I - Beta abner was initially held 2/2 severe bradycardia arrhythmia, however was resumed after pacemaker implant -2-D echo with 50% - Management per cardiology Severe Bradycardia arrhythmia - Status post acute myocardial infarction - s/p AICD placement 08/22/17 Hypertension -Treated with Lisinopril, Norvasc, Clonidine. Beta abner was resumed after AICD placement Dyslipidemia -Treated with Atorvastatin DVT GI prophylaxis - Teds SCDs Pt Condition on Discharge: Good Discharge Disposition: Discharge Home Discharge Time: <= 30 minutes Discharge Instructions DIET: Follow Instructions for: Heart Healthy Diet Activities you can perform: Weight Bearing as [place] Follow up Referrals: Cardiology PCP Follow-up - 1 Week New Medications: Amlodipine (Norvasc) 10 Mg Tab 10 MG PO DAILY for Blood Pressure Management, #30 TAB 11 Refills Aspirin (Tgt Aspirin) 81 Mg Chw 81 MG PO DAILY for Prevent Blood Clot, #30 EA 11 Refills Atorvastatin (Atorvastatin) 40 Mg Tab 40 MG PO HS for Cholesterol Management, #30 TAB 11 Refills Carvedilol (Coreg) 3.125 Mg Tab 3.125 MG PO Q12HR for Blood Pressure Management, #60 TAB 11 Refills Enalapril (Enalapril) 5 Mg Tab 10 MG PO BID for Blood Pressure Management, #60 TAB 11 Refills Ticagrelor (Brilinta) 90 Mg Tab 90 MG PO BID for Prevent Blood Clot, #60 TAB 11 Refills Milton Jimenez MD Aug 23, 2017 10:47
--- NOTE | 2017-08-23 13:31 | PD.CARD.PN ---
Subjective Subjective Remarks No chest pain or dyspnea Objective Medications Current Medications Medications (Trade) Dose Ordered Sig/Luis Angel Route Start Time Stop Time Status Last Admin (NS Flush) 2 ml UNSCH PRN IVF 08/19/17 16:00 08/20/17 20:22 (Aspirin Chew) 81 mg DAILY PO 08/20/17 09:00 08/23/17 09:24 (Brilinta) 90 mg BID PO 08/20/17 09:00 08/23/17 09:24 (Lipitor) 40 mg HS PO 08/19/17 21:00 08/22/17 21:02 (Ativan Inj) 0.5 mg Q4H PRN IV 08/20/17 00:30 (Norvasc) 10 mg DAILY PO 08/20/17 09:00 08/23/17 09:24 (Vasotec) 10 mg BID PO 08/20/17 09:00 08/23/17 09:25 (Atropine Inj) 0.5 mg Q5M PRN IV PUSH 08/21/17 02:30 Sodium Chloride 1,000 ml @ 125 mls/hr Q8H IV 08/22/17 05:00 08/22/17 13:00 Cefazolin Sodium 1000 mg/Sodium Chloride 250 ml @ 0 mls/hr ONCE IV 08/22/17 11:00 08/24/17 10:59 Vancomycin HCl 1000 mg/Sodium Chloride 250 ml @ 0 mls/hr ONCE IV 08/22/17 11:00 08/24/17 10:59 (Betadine 5% Antisepsis Kit) 1 applic ONCE TOPICAL 08/21/17 10:30 08/24/17 10:29 (Bactroban Nasal 2% Oint) 1 applic ONCE EACH NARE 08/21/17 10:30 08/24/17 10:29 (Chlorhexidine 2% Cloth) 1 pack ONCE TOPICAL 08/21/17 10:30 08/24/17 10:29 (Ultram) 50 mg Q6HR PRN PO 08/22/17 15:00 08/22/17 22:51 (Coreg) 3.125 mg Q12HR PO 08/22/17 21:00 08/23/17 09:24 Vital Signs / I&O Vital Signs Date Time Temp Pulse Resp B/P (MAP) Pulse Ox O2 Delivery O2 Flow Rate FiO2 08/23/17 08:03 94 21 08/23/17 06:00 68 08/23/17 05:00 78 08/23/17 04:00 74 08/23/17 04:00 93 Room Air 08/23/17 04:00 98.6 74 17 113/64 (80) 93 08/23/17 03:00 75 08/23/17 03:00 98.6 75 18 116/60 (78) 94 08/23/17 02:00 72 08/23/17 01:00 69 08/23/17 00:00 98.4 73 13 114/57 (76) 96 08/23/17 00:00 96 Room Air 08/23/17 00:00 73 08/22/17 23:00 98.8 76 14 105/55 (72) 95 08/22/17 23:00 76 08/22/17 22:00 68 08/22/17 20:00 98.1 82 30 130/59 (82) 93 08/22/17 20:00 93 Room Air 08/22/17 20:00 82 08/22/17 19:00 84 08/22/17 19:00 98.8 84 33 113/62 (79) 94 08/22/17 18:00 76 08/22/17 17:00 72 08/22/17 16:00 94 Room Air 08/22/17 16:00 98.1 74 17 131/60 (83) 94 08/22/17 16:00 74 I/O 08/22/17 08/22/17 08/22/17 08/23/17 08/23/17 08/23/17 07:00 15:00 23:00 07:00 15:00 23:00 Intake Total 500 ml 570 ml Output Total 1975 ml Balance -1475 ml 570 ml Intake Oral 500 ml 320 ml IV Total 250 ml Output Urine Total 1975 ml # Voids 4 2 # Bowel Movements 1 1 0 Physical Exam GENERAL: Well developed, obese, well nourished. No acute distress. HEENT: Jugular venous pressure is normal. CHEST: Lungs clear to auscultation bilaterally. Unlabored respiratory effort. Pacer site OK. CARDIAC: Regular rate and rhythm without S3, S4, or murmur. ABDOMEN: Soft, nontender, no hepatosplenomegaly. Bowel sounds present. EXTREMITIES: No clubbing, cyanosis, or edema. Pacer check OK Imaging Last 24 hours Impressions Chest X-Ray 08/22/17 5439 Signed Impressions: Service Date/Time: Tuesday, August 22, 2017 15:10 - CONCLUSION: Patient position, and no pneumothorax. Charly Rodriguez MD FACR Assessment and Plan Problem List: (1) STEMI (ST elevation myocardial infarction) ICD Codes: I21.3 - ST elevation (STEMI) myocardial infarction of unspecified site Status: Acute (2) Hyperlipidemia ICD Codes: E78.5 - Hyperlipidemia, unspecified Status: Chronic (3) Hypertension ICD Codes: I10 - Essential (primary) hypertension Status: Chronic (4) Pacemaker ICD Codes: Z95.0 - Presence of cardiac pacemaker Plan: Normal function Assessment and Plan OK to DC with F/U Dr. Calvert Problem Qualifiers (1) STEMI (ST elevation myocardial infarction): Qualified Codes: I21.21 - ST elevation (STEMI) myocardial infarction involving left circumflex coronary artery (2) Hyperlipidemia: Qualified Codes: E78.2 - Mixed hyperlipidemia (3) Hypertension: Qualified Codes: I10 - Essential (primary) hypertension Jaspreet Whitman MD Aug 23, 2017 13:31
--- NOTE | 2017-08-24 11:12 | MP ---
cc: EDDA LINK M.D. DATE OF SURGERY: 08/24/2017. PROCEDURE PERFORMED: Dual-chamber permanent pacemaker implantation via the left subclavian vein. SURGEON: Edda Link MD. INDICATIONS FOR THE PROCEDURE: Sick sinus syndrome, severe bradycardia status post acute inferior wall myocardial infarction. OPERATIVE NOTES: The patient was brought to the operating suite in a fasting state after having signed informed consent. The left upper chest was prepped and draped as per policy and anesthetized with 1% lidocaine. A transverse incision was made inferior to the left clavicle and using blunt dissection a subcutaneous pocket was formed down to the pectoralis fascia. Using modified Seldinger technique, central venous access was obtained twice via the left subclavian vein. Over the more lateral guidewire, a 7[place]izen [place] sheath was placed and through this sheath a ventricular active fixation lead was introduced and its tip positioned in the right ventricular apex where good current of injury, stimulation threshold (1.0 volts) and sensitivity (7.9 mV) were demonstrated. This lead was secured into place using 2-0 silk ties down to the pectoralis fascia. Over the remaining guidewire, another 7-Citizen [place] sheath was placed and through this sheath an atrial active fixation lead was introduced and its tip positioned in the right atrial appendage where good current of injury, stimulation threshold (0.8 volts) and sensitivity (2.0 mV) were demonstrated. This lead was secured into place using 2-0 silk ties down to the pectoralis fascia. The leads were then connected to the pacemaker generator which is a Biotron[employer] Eluna device. The leads and the generator were placed back into the subcutaneous pocket which was closed using 3-0 Vicryl interrupted stitches in two layers to close the subcutaneous tissue and then 4-0 Monocryl running stitch to close the subcuticular tissue. Overlapping Steri-Strips and a dressing were applied. There were no apparent immediate complications. A portable chest x-ray is pending at the time of this dictation. CONCLUSIONS: Successful dual-chamber permanent pacemaker implantation via the left subclavian vein using a Bi[employer] Eluna pacemaker generator. MD PATTY Haskins/REN /2:55 PM /11:05 AM KAMARI
== END 2017-08-23 14:33 | disposition home or self-care (01) | DRG 228 ==
LOC: NEPC 15:39 → NEDA 15:55 → HCIS 17:50 → HCVI 21:35 → HCPC 08-20 14:08 → N03A 08-21 01:36
PROVIDERS: ADMIT Hospitalist; ATTEND Hospitalist
PROC: 027004Z Dilation of Coronary Artery, One Artery with Drug-eluting Intraluminal Device, Open Approach (ICD-10-PCS; principal; 2017-08-19)
PROC: 02C00ZZ Extirpation of Matter from Coronary Artery, One Artery, Open Approach (ICD-10-PCS; 2017-08-19)
PROC: 4A023N7 Measurement of Cardiac Sampling and Pressure, Left Heart, Percutaneous Approach (ICD-10-PCS; 2017-08-19)
PROC: B2111ZZ Fluoroscopy of Multiple Coronary Arteries using Low Osmolar Contrast (ICD-10-PCS; 2017-08-19)
PROC: B2151ZZ Fluoroscopy of Left Heart using Low Osmolar Contrast (ICD-10-PCS; 2017-08-19)
PROC: 0JH606Z Insertion of Pacemaker, Dual Chamber into Chest Subcutaneous Tissue and Fascia, Open Approach (ICD-10-PCS; 2017-08-22)
PROC: 02HK3JZ Insertion of Pacemaker Lead into Right Ventricle, Percutaneous Approach (ICD-10-PCS; 2017-08-22)
PROC: 02H63JZ Insertion of Pacemaker Lead into Right Atrium, Percutaneous Approach (ICD-10-PCS; 2017-08-22)
DX: I21.19 ST elevation (STEMI) myocardial infarction involving other coronary artery of inferior wall (principal); I46.9 Cardiac arrest, cause unspecified; I49.5 Sick sinus syndrome; I25.118 Atherosclerotic heart disease of native coronary artery with other forms of angina pectoris; I10 Essential (primary) hypertension; E66.3 Overweight; Z87.891 Personal history of nicotine dependence; E78.2 Mixed hyperlipidemia
CPT/HCPCS: 33208; 71045; 80048; 80053; 80061; 82310; 82550; 82552; 83735; 83880; 84100; 84439; 84443; 84484; 85002; 85025; 85610; 85730; 87641; 92941; 93005; 93306; 93458; 99291; C1725; C1757; C1769; C1785; C1874; C1887; C1893; C1898; J0461; J0690; J1644; J2060; J2250; J3010; J3246; J3370; J7030; J7050; Q9967